=== PATIENT | female | born 1955 | race Caucasian/White ===

== ENCOUNTER → 2016-11-11 | Outpatient (RCR) ==
--- NOTE | 2016-10-30 14:42 | RS.OPPTEV2 ---
Date of Note: 10/30/16 Visit #: 1 Date of Evaluation: 10/30/16 Payer Source: Insurance Date of Onset/Injury/Change in Status: 08/21/16 Surgery Performed?: Yes Date of Procedure: 08/21/16 Treatment Diagnosis: cervicalgia History of Condition/Mechanism of Injury:: Patient reports to physical therapy with neck pain following cervical disc replacement of two discs. She has had the pain for years and finally had to get something done. She states that she still has to take some type of pain meds every day. It can be a Tylenol or it may need to be a narcotic. Prior Level of Function.....Patient was independent with: ADL's, Self Care, Caregiving, Ambulation/Mobility, Community Integration/Access Functional Limitations: Sleep, Pushing, Pulling, Lifting, Carrying, Community Access/Integration Current Subjective/complaints:: I feel good when I first wake up and after I just get up from a nap. After I am up for a short time I start having pain and tightness again. Treatment Side (optional): N/A Medical History Medical History: Diabetes Medical History Comments:: Patient states she has been diabetic since she was in her 30s and that her blood sugar is very unstable and not related to what she eats really. She has to monitor her blood often for control. Surgical History: Cholecystectomy, Other Surgical History Comments:: Cervical disc replacements and CTS Smoking Status: Former smoker Pain Assessment - Pain Description Pain Location: Cervical spine and upper traps Pain Description: Throbbing, Aching Pain Description: Daily but not constant Current Pain Intensity: 3/10 Worst Pain Intensity: 10/10 Functional Outcome Measure Neck Disability Index: 21 (42% disability) - G Codes & Severity Modifier G Codes & Modifier: NA Source of G Code score: NA Observation - Observation Posture: Forward Head, Rounded Shoulders Comments: Bilateral scapular winging Handedness: Right General Range of Motion: BUE ROM WNLs Muscle Strength: MMT BUEs WNLs - ROM Comments: CROM WFLs - Strength Cervical Extension: 4 Good Cervical Flexion: 4 Good Cervical Lateral Flexion: 4- Good- Palpation Palpation Findings: Tenderness (Throughout the cervical and upper trap regions.) Interventions - Exercise/Activities/Manual Therapy Exercises/Activities: NA Manual Therapy: NA - Charges Total Direct Minutes: 45 Total Treatment Time: 45 Procedures billed for this date of service:: PT Eval (Medium) Assessment Assessment: Neck and upper trap pain and weakness. Patient Education: Education of diagnosis, Body/Joint mechanics, Activity Modification, Education of Plan of Care Rehab Potential: Good Short Term Goals Goal #1: Patient will display independence with basic HEP. Goal to be met by: 11/21/16 Goal #2: Patient has 25% improvement in ability to sleep Goal to be met by: 11/21/16 Goal #3: Patient is able to be active X 4 hrs before need for pain meds. Goal to be met by: 11/21/16 Nursing Home Goals Goal #1: Patient will report normal sleep pattern. Goal to be met by: 12/12/16 Goal #2: Patient will tolerance lifting activity without pain. Goal to be met by: 12/12/16 Goal #3: Patient will complete all daily activites with min neck pain. Goal to be met by: 12/12/16 Goal #4: Pt independent with DC HEP Goal to be met by: 12/12/16 Plan - Treatment to be Provided Procedures: Therapeutic Exercises, Therapeutic Activity, Neuromuscular Rehab, Manual Therapy, Massage, Patient Education Modalities: Electrical Stimulation, Ultrasound/Phonophoresis, Class IV Laser, Cryotherapy, Hot Packs - Treatment Plan Frequency: 2 X week Duration: 6 weeks ORDER # VISITS AND/OR THROUGH DATE: 12/12/16 - Treatment Code (1) Cervicalgia Comments: M54.2 (2) Weakness of neck Comments: M53.82
--- NOTE | 2016-11-11 10:18 | RS.OPPTDN ---
Subjective Date of Note: 11/11/16 Visit #: 2 Date of Evaluation: 10/30/16 Payer Source: Insurance Treatment Diagnosis: cervicalgia Current Subjective/complaints:: Patient says she always has trouble with sleeping and that it is not necessarily due to her neck pain. She reports not noticing her pain until the end of the day. She says she has pain even with surgery, but the L is more than the R. Pain Assessment - Pain Description Pain Location: Cervical spine and upper traps Pain Description: Throbbing, Aching Pain Description: Daily but not constant Current Pain Intensity: 12/19 - Treatment Modality: Electrical Stim Unattended Parameters/Method Applied: hivolt 4 small pads @ 125 (R) and 165 pk volts (L) x 20 mins Patient Position: Sitting - Heat/Cryotherapy Treatment: Hot Pack (with estim (cervical)) Interventions - Exercise/Activities/Manual Therapy Exercises/Activities: Patient receives gentle stretching of SB and rotation. She performs cervical retraction, shoulder shrugs, scap adduction (also given for home). Total minutes of Exercise: 5 Manual Therapy: Patient receives MT of DTM and trigger point work for bilateral UT Total minutes of Manual Therapy: 10 HOME EXERCISE PROGRAM: Pain free cervical ROM of chin tucks,rotation ,lateral flexion.Postural pullbacks with theraband at different levels.Recommended 2-3x/ day,12/24 reps. - Charges Total Direct Minutes: 15 Total Treatment Time: 35 Procedures billed for this date of service:: hp, estim (un), MT Assessment: Patient admits consistent pain to her neck, L side more than R. She says despite surgery, she is unable to notice any improvement. 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 She feels relief with be more once she discontinues paperwork. Patient Education: Education of diagnosis, Body/Joint mechanics, Home Exercise Program, Home Safety, Activity Modification, Education of Plan of Care Short Term Goals Goal #1: Patient will display independence with basic HEP. Goal to be met by: 11/21/16 Goal #2: Patient has 25% improvement in ability to sleep Goal to be met by: 11/21/16 Goal #3: Patient is able to be active X 4 hrs before need for pain meds. Goal to be met by: 11/21/16 Radiographic Technologist Goals Goal #1: Patient will report normal sleep pattern. Goal to be met by: 12/12/16 Goal #2: Patient will tolerance lifting activity without pain. Goal to be met by: 12/12/16 Goal #3: Patient will complete all daily activites with min neck pain. Goal to be met by: 12/12/16 Goal #4: Pt independent with DC HEP Goal to be met by: 12/12/16 Plan PLAN OF CARE EXPIRES ON:: 12/12/16 ORDER # VISITS AND/OR THROUGH DATE: 12/12/16 PLAN: Continue Plan of Care
== END ==
DX: M54.2 Cervicalgia (principal)

== ENCOUNTER 2016-12-04 09:00 | Outpatient (RCR) ==
--- NOTE | 2016-11-13 10:19 | RS.OPPTDN ---
Subjective Date of Note: 11/13/16 Visit #: 3 Date of Evaluation: 10/30/16 Payer Source: Insurance Treatment Diagnosis: cervicalgia Current Subjective/complaints:: Patient states she has a pulsating pressure to her neck and head. States she can feel her heartbeat and she is unable to get relief. Reports she is seeing her MD as soon as she gets out of PT. Reports she does not want ice, but rather heat. Pain Assessment - Pain Description Pain Location: Cervical spine and upper traps Pain Description: Daily but not constant Current Pain Intensity: 12/19 - Treatment Modality: Electrical Stim Unattended Parameters/Method Applied: hivolt 4 small pads @ 135-150 pk volts x 20 mins to the bilateral UT Patient Position: Sitting - Heat/Cryotherapy Treatment: Hot Pack (with estim) Interventions - Exercise/Activities/Manual Therapy Exercises/Activities: Patient receives gentle stretching of SB and rotation. She performs cervical retraction, shoulder shrugs, scap adduction (also given for home). Total minutes of Exercise: 5 Manual Therapy: Patient receives MT of DTM and trigger point work for bilateral UT Total minutes of Manual Therapy: 10 HOME EXERCISE PROGRAM: Pain free cervical ROM of chin tucks,rotation ,lateral flexion.Postural pullbacks with theraband at different levels.Recommended 2-3x/ day,12/24 reps. - Charges Total Direct Minutes: 15 Total Treatment Time: 35 Procedures billed for this date of service:: hp, estim (un), ex Assessment: Patient continues to admit mod to severe pain at the bilateral UT with c/o pressure and throbbing to the ear/neck. She denies having a BELL, but c/ o double vision. She does demo increased muscle guarding to the bilateral UT. No symptom change with treatment this week. Patient Education: Education of diagnosis, Body/Joint mechanics, Home Exercise Program, Home Safety, Activity Modification, Education of Plan of Care Short Term Goals Goal #1: Patient will display independence with basic HEP. Goal to be met by: 11/21/16 Goal #2: Patient has 25% improvement in ability to sleep Goal to be met by: 11/21/16 Goal #3: Patient is able to be active X 4 hrs before need for pain meds. Goal to be met by: 11/21/16 Group Home Goals Goal #1: Patient will report normal sleep pattern. Goal to be met by: 12/12/16 Goal #2: Patient will tolerance lifting activity without pain. Goal to be met by: 12/12/16 Goal #3: Patient will complete all daily activites with min neck pain. Goal to be met by: 12/12/16 Goal #4: Pt independent with DC HEP Goal to be met by: 12/12/16 Plan PLAN OF CARE EXPIRES ON:: 12/12/16 ORDER # VISITS AND/OR THROUGH DATE: 12/12/16 PLAN: Continue Plan of Care (Patient is going to follow up with her MD once she leaves PT today.)
--- NOTE | 2016-11-18 10:20 | RS.OPPTDN ---
Subjective Date of Note: 11/18/16 Visit #: 4 Date of Evaluation: 10/30/16 Payer Source: Insurance Treatment Diagnosis: cervicalgia Current Subjective/complaints:: Patient c/o stiffness. Says her L side of her neck hurts more than R. Reports she did go to the MD after her last session and she will be undergoing some testing. States she can tell that flexibility has been better. Pain Assessment - Pain Description Pain Location: Cervical spine and upper traps Pain Description: Daily but not constant Current Pain Intensity: Does not rate, but says it ismostly stiff - Treatment Modality: Electrical Stim Unattended Parameters/Method Applied: 4 small pads controlling L side seperately @ 145-155 pk volts x 20 mins Treatment Area: bilateral UT Patient Position: Sitting - Heat/Cryotherapy Treatment: Hot Pack Interventions - Exercise/Activities/Manual Therapy Exercises/Activities: Patient receives gentle stretching of SB and rotation. She performs cervical retraction, shoulder shrugs, assists with scap adduction. Total minutes of Exercise: 5 Manual Therapy: Patient receives MT of DTM and trigger point work for bilateral UT Total minutes of Manual Therapy: 15 HOME EXERCISE PROGRAM: Pain free cervical ROM of chin tucks,rotation ,lateral flexion.Postural pullbacks with theraband at different levels.Recommended 2-3x/ day,12/24 reps. - Charges Total Direct Minutes: 20 Total Treatment Time: 40 Procedures billed for this date of service:: hp, estim (un), ex Assessment: Patient experiencing mostly stiffness today. She implies and demos improved flexibility and muscle guarding with treatment today. Less "pressure" noted compared to last visit. Patient Education: Education of diagnosis, Body/Joint mechanics, Home Exercise Program, Home Safety, Activity Modification, Education of Plan of Care Patient demonstrates compliance with HEP?: Yes Short Term Goals Goal #1: Patient will display independence with basic HEP. Goal to be met by: 11/21/16 Progress towards Goal:: Progressing Goal #2: Patient has 25% improvement in ability to sleep Goal to be met by: 11/21/16 Goal #3: Patient is able to be active X 4 hrs before need for pain meds. Goal to be met by: 11/21/16 Cash Grain Grower Goals Goal #1: Patient will report normal sleep pattern. Goal to be met by: 12/12/16 Goal #2: Patient will tolerance lifting activity without pain. Goal to be met by: 12/12/16 Goal #3: Patient will complete all daily activites with min neck pain. Goal to be met by: 12/12/16 Goal #4: Pt independent with DC HEP Goal to be met by: 12/12/16 Plan PLAN OF CARE EXPIRES ON:: 12/12/16 ORDER # VISITS AND/OR THROUGH DATE: 12/12/16 PLAN: Continue Plan of Care
--- NOTE | 2016-11-25 15:06 | RS.OPPTDN ---
Subjective Date of Note: 11/25/16 Visit #: 5 Date of Evaluation: 10/30/16 Payer Source: Insurance Treatment Diagnosis: cervicalgia Current Subjective/complaints:: Patient states she may have to accept the amount of pain she is in and understand that it will vary. 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 She says treatment helps, but muscles tighten back up and she is able to feel knots to both sides of her neck. Pain Assessment - Pain Description Pain Location: Cervical spine and upper traps Pain Description: Daily but not constant Current Pain Intensity: Does not rate, but says it ismostly stiff - Treatment Modality: Electrical Stim Unattended Parameters/Method Applied: hivolt 4 small pads @ 170 and 200 pk volts x 20 mins to bilateral UT Patient Position: Sitting - Heat/Cryotherapy Treatment: Hot Pack Interventions - Exercise/Activities/Manual Therapy Exercises/Activities: Patient receives gentle stretching of SB and rotation. She performs cervical retraction, shoulder shrugs, assists with scap adduction. Total minutes of Exercise: 5 Manual Therapy: Patient receives MT of DTM and trigger point work for bilateral UT Total minutes of Manual Therapy: 13 HOME EXERCISE PROGRAM: Pain free cervical ROM of chin tucks,rotation ,lateral flexion.Postural pullbacks with theraband at different levels.Recommended 2-3x/ day,3/15 reps. 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 She maintains several small active and non active trigger points to the bilateral UT, which appear to be smaller and less sensitive than last week. Patient Education: Education of diagnosis, Body/Joint mechanics, Home Exercise Program, Home Safety, Activity Modification, Education of Plan of Care Patient demonstrates compliance with HEP?: Yes Short Term Goals Goal #1: Patient will display independence with basic HEP. Goal to be met by: 11/21/16 Progress towards Goal:: Progressing Goal #2: Patient has 25% improvement in ability to sleep Goal to be met by: 11/21/16 Goal #3: Patient is able to be active X 4 hrs before need for pain meds. Goal to be met by: 11/21/16 Library Customer Service Clerk Goals Goal #1: Patient will report normal sleep pattern. Goal to be met by: 12/12/16 Goal #2: Patient will tolerance lifting activity without pain. Goal to be met by: 12/12/16 Goal #3: Patient will complete all daily activites with min neck pain. Goal to be met by: 12/12/16 Goal #4: Pt independent with DC HEP Goal to be met by: 12/12/16 Plan PLAN OF CARE EXPIRES ON:: 12/12/16 ORDER # VISITS AND/OR THROUGH DATE: 12/12/16 PLAN: Continue Plan of Care
--- NOTE | 2016-11-27 13:22 | RS.OPPTDN ---
Subjective Date of Note: 11/27/16 Visit #: 6 Date of Evaluation: 10/30/16 Payer Source: Insurance Treatment Diagnosis: cervicalgia Current Subjective/complaints:: Patient states she is worse today. She stresses it is not from therapy,but her history of neck pain and activity she needs to do daily. Pain Assessment - Pain Description Pain Location: Cervical spine and upper traps Pain Description: Daily but not constant Current Pain Intensity: Does not rate, but says it ismostly stiff - Treatment Modality: Electrical Stim Unattended Parameters/Method Applied: hivolt 4 small pads L side controlled seperately from R @ 200 pk volts x 20 mins to bilateral UT Patient Position: Sitting - Heat/Cryotherapy Treatment: Hot Pack Interventions - Exercise/Activities/Manual Therapy Exercises/Activities: Patient receives gentle stretching of SB and rotation. She performs cervical retraction, shoulder shrugs, assists with scap adduction. Isometric cervical retraction 2/5. Postural technique instruction with bringing reading material/phone to eye level. Total minutes of Exercise: 5 Manual Therapy: Patient receives MT of DTM and trigger point work for bilateral UT Total minutes of Manual Therapy: 15 HOME EXERCISE PROGRAM: Pain free cervical ROM of chin tucks,rotation ,lateral flexion.Postural pullbacks with theraband at different levels.Recommended 2-3x/ day,3/15 reps. - Charges Total Direct Minutes: 20 Total Treatment Time: 40 Procedures billed for this date of service:: hp, MT, estim (un) Assessment: Patient with increased pain today probably related to activity level at home and with preparing taxes/documentation. Increased muscle guarding particularly to the L UT today. Symptoms are temporarily relieved in the department today. Patient Education: Education of diagnosis, Body/Joint mechanics, Home Exercise Program, Home Safety, Activity Modification, Education of Plan of Care Patient demonstrates compliance with HEP?: Yes Short Term Goals Goal #1: Patient will display independence with basic HEP. Goal to be met by: 11/21/16 Progress towards Goal:: Progressing Goal #2: Patient has 25% improvement in ability to sleep Goal to be met by: 11/21/16 Progress towards Goal:: No Change Goal #3: Patient is able to be active X 4 hrs before need for pain meds. Goal to be met by: 11/21/16 Plaster Maker Goals Goal #1: Patient will report normal sleep pattern. Goal to be met by: 12/12/16 Goal #2: Patient will tolerance lifting activity without pain. Goal to be met by: 12/12/16 Goal #3: Patient will complete all daily activites with min neck pain. Goal to be met by: 12/12/16 Goal #4: Pt independent with DC HEP Goal to be met by: 12/12/16 Plan PLAN OF CARE EXPIRES ON:: 12/12/16 ORDER # VISITS AND/OR THROUGH DATE: 12/12/16 PLAN: Continue Plan of Care (continue one more week, if no change plan to refer back to MD and continue HEP)
--- NOTE | 2016-12-02 10:29 | RS.OPPTDN ---
Subjective Date of Note: 12/02/16 Visit #: 7 Date of Evaluation: 10/30/16 Payer Source: Insurance Treatment Diagnosis: cervicalgia Current Subjective/complaints:: Patient says she feels estim is making her worse. She says that when it was increased last week, she had elevated pain to her back. Advised patient that electrodes were placed at the UT only and it would not affect her back. She later, says that she would like to continue estim, but have it lower. Pain Assessment - Pain Description Pain Location: Cervical spine and upper traps Pain Description: Daily but not constant Current Pain Intensity: Does not rate, but says it is mostly stiff - Treatment Modality: Electrical Stim Unattended Parameters/Method Applied: hivolt 4 small pads @ 70 pk volts x 20 mins Treatment Area: bilateral UT Patient Position: Sitting - Heat/Cryotherapy Treatment: Hot Pack (cervical ) Interventions - Exercise/Activities/Manual Therapy Exercises/Activities: Patient receives gentle stretching of SB and rotation. She performs cervical retraction, shoulder shrugs, assists with scap adduction. Isometric cervical retraction 2/5. Isometric SB to L and R 2/5. Continued postural technique instruction with bringing reading material/phone to eye level. Total minutes of Exercise: 16 Manual Therapy: na HOME EXERCISE PROGRAM: Pain free cervical ROM of chin tucks,rotation ,lateral flexion.Postural pullbacks with theraband at different levels.Recommended 2-3x/ day,3/15 reps. - Charges Total Direct Minutes: 16 Total Treatment Time: 36 Procedures billed for this date of service:: hp, estim (un), ex Assessment: Patient experienced increased pain, particularly expressing back pain since his last session. Advised her that this modality and its placement will not cause back pain. 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 Instructed of proper postural mechanics again as she sits slouched looking at her phone with FHP. All therex guillermo well with only slight soreness with resisted L SB. Patient Education: Education of diagnosis, Body/Joint mechanics, Home Exercise Program, Home Safety, Activity Modification, Education of Plan of Care Patient demonstrates compliance with HEP?: Yes Short Term Goals Goal #1: Patient will display independence with basic HEP. Goal to be met by: 11/21/16 Progress towards Goal:: Progressing Goal #2: Patient has 25% improvement in ability to sleep Goal to be met by: 11/21/16 Progress towards Goal:: No Change Goal #3: Patient is able to be active X 4 hrs before need for pain meds. Goal to be met by: 11/21/16 Sales Audit Clerk Goals Goal #1: Patient will report normal sleep pattern. Goal to be met by: 12/12/16 Goal #2: Patient will tolerance lifting activity without pain. Goal to be met by: 12/12/16 Goal #3: Patient will complete all daily activites with min neck pain. Goal to be met by: 12/12/16 Goal #4: Pt independent with DC HEP Goal to be met by: 12/12/16 Plan PLAN OF CARE EXPIRES ON:: 12/12/16 ORDER # VISITS AND/OR THROUGH DATE: 12/12/16 PLAN: Plan for Discharge (Since patient has not had significant change, she is to continue one more session, then discharge with HEP)
--- NOTE | 2016-12-04 16:45 | RS.OPPTDN ---
Subjective Date of Note: 12/04/16 Visit #: 8 Date of Evaluation: 10/30/16 Payer Source: Insurance Treatment Diagnosis: cervicalgia Current Subjective/complaints:: Patient reports her pain is not worse, but not better either. 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 She does say she is able to notice less tightness to the neck, particularly on the L side. Pain Assessment - Pain Description Pain Location: Cervical spine and upper traps Pain Description: Daily but not constant Current Pain Intensity: Does not rate, but says it is mostly stiff - Treatment Modality: Electrical Stim Unattended Parameters/Method Applied: 4 small pads hivolt @ 125 pk volts x 20 mins Treatment Area: bilateral UT Patient Position: Sitting - Heat/Cryotherapy Treatment: Hot Pack Interventions - Exercise/Activities/Manual Therapy Exercises/Activities: Patient receives gentle stretching of SB and rotation. She performs cervical retraction, shoulder shrugs, assists with scap adduction. Isometric cervical retraction 2/5. Isometric SB to L and R 2/5. Continued postural technique instruction with bringing reading material/phone to eye level. Total minutes of Exercise: 8 Manual Therapy: 13 Total minutes of Manual Therapy: DTM and trigger work to the bilateral UT. HOME EXERCISE PROGRAM: Pain free cervical ROM of chin tucks,rotation ,lateral flexion.Postural pullbacks with theraband at different levels.Recommended 2-3x/ day,3/15 reps. - Charges Total Direct Minutes: 21 Total Treatment Time: 41 Procedures billed for this date of service:: hp, estim (un), MT Assessment: Patient indicates very little progress, but on Neck Index she does show 3 areas of improvement. She shows less trigger points/tenderness to the L UT today as well. Patient Education: Education of diagnosis, Body/Joint mechanics, Home Exercise Program, Home Safety, Activity Modification, Education of Plan of Care Patient demonstrates compliance with HEP?: Yes Short Term Goals Goal #1: Patient will display independence with basic HEP. Goal to be met by: 11/21/16 Progress towards Goal:: Progressing Goal #2: Patient has 25% improvement in ability to sleep Goal to be met by: 11/21/16 Progress towards Goal:: No Change Goal #3: Patient is able to be active X 4 hrs before need for pain meds. Goal to be met by: 11/21/16 Progress towards Goal:: No Change Detention Goals Goal #1: Patient will report normal sleep pattern. Goal to be met by: 12/12/16 Progress towards goal: No Change Goal #2: Patient will tolerance lifting activity without pain. Goal to be met by: 12/12/16 Progress towards goal: Progressing Goal #3: Patient will complete all daily activites with min neck pain. Goal to be met by: 12/12/16 Progress towards goal: No Change Goal #4: Pt independent with DC HEP Goal to be met by: 12/12/16 Progress towards goal: Met Plan PLAN OF CARE EXPIRES ON:: 12/12/16 ORDER # VISITS AND/OR THROUGH DATE: 12/12/16 PLAN: Plan for Discharge
--- NOTE | 2017-01-22 09:21 | RS.QUICKDC ---
Discharge from PT Date of Discharge: 01/22/17 Number of Visits: 8 Reason for Discharge: Patient had consistently attended for moist heat, estim, postural strengthening, passive stretching, and DTM to bilateral UT. Patient had reported no significant change in neck pain. She admitted to decreased tightness and slightly better mobility. 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 For specific information, see daily notes.
== END 2016-12-09 ==
DX: M54.2 Cervicalgia (principal)

== ENCOUNTER 2017-03-23 12:25 | Emergency (ER) ==
[2017-03-23 12:32] VITALS: BP 150/91; TEMP 98; BMI 22.8
[2017-03-23] MEDS ORDERED: LIDOCAINE 1 % AMP 5 ML (SUTURES) SUBCUT STA (13:34)
[2017-03-23] MEDS ORDERED: GI COCKTAIL PO STA (13:35)
--- NOTE | 2017-03-23 13:56 | ED.PDOC ---
General ED Provider: Dr. CARMEN SHANE Chief Complaint: Head Injury Stated Complaint: head injury/laceration Time Seen by Physician: 12:39 (blunt force trauma no LOC) Mode of Arrival: Walk-In Information Source: Patient Exam Limitations: No limitations Primary Care Provider: DEJA VALENCIA Nursing and Triage Documentation Reviewed and Agree: Yes Trauma/Injury Complaint Exam - Head Injury Complaint/Exam Location of Pain: Reports: Scalp Mechanism of Injury: Reports: Trauma (BLUNT FORCE ) Onset/Duration: THIS MORNING NO L.O.C Symptoms Are: Still present Initial Severity: Mild Current Severity: Mild Character: Reports: Dull Aggravating: Reports: None Alleviating: Reports: None Associated Signs and Symptoms: Denies: Confusion, Memory loss, Seizure, Epistaxis, Dental malocclusion, Neck pain, Nausea, Vomiting Loss of Consciousness: None SDH Risk Factors: Present: Recent trauma Cervical Spine Injury Risk Factors: Present: None Related Surgical History: Reports: None Glascow Coma Scale (see protocol): 15 Focal Weakness: Present: None Focal Sensory Loss: Present: None Gait: Normal Gag Reflex Present: Yes Nexus Low Risk Criteria: No Altered LOC, No focal neuro deficit, No distracting injuries Differential Diagnoses: Trauma Review of Systems - Review Of Systems Constitutional: Reports: No symptoms Eyes: Reports: No symptoms Ears, Nose, Mouth, Throat: Reports: No symptoms Respiratory: Reports: No symptoms Cardiac: Reports: No symptoms GI: Reports: No symptoms : Reports: No symptoms Musculoskeletal: Reports: No symptoms Skin: Reports: Other (LACERATION SEE PHOTOS ) Neurological: Reports: No symptoms Endocrine: Reports: No symptoms Hematologic/Lymphatic: Reports: No symptoms All Other Systems: Reviewed and Negative Past Medical History - Past Medical History Previously Healthy: Yes Endocrine: Reports: None Cardiovascular: Reports: None Respiratory: Reports: None Hematological: Reports: None Gastrointestinal: Reports: None Genitourinary: Reports: None Neuro/Psych: Reports: None Musculoskeletal: Reports: None Cancer: Reports: None Last Menstrual Period: na - Surgical History General Surgical History: Reports: None - Family History Family History: Reports: None - Social History Smoking Status: Current some day smoker Hx Substance Use: No Alcohol Screening: Occasionally - Immunizations Tetanus Shot up to Date: No Physical Exam - Physical Exam Appearance: Well-appearing, No pain distress, Well-nourished Eyes: TODD, EOMI, Conjunctiva clear ENT: Ears normal, Nose normal, Oropharynx normal Respiratory: Airway patent, Breath sounds clear, Breath sounds equal, Respirations nonlabored Cardiovascular: RRR, Pulses normal, No rub, No murmur GI/: Soft, Nontender, No masses, Bowel sounds normal, No Organomegaly Musculoskeletal: Normal strength, ROM intact, No edema, No calf tenderness Skin: Warm, Dry (LACERATION SCALP SEE PHOTOS) Neurological: Sensation intact, Motor intact, Reflexes intact, Cranial nerves intact, Alert, Oriented Psychiatric: Affect appropriate, Mood appropriate Critical Care Note - Critical Care Note Total Time (mins): 0 Course - Course Orders, Labs, Meds: Orders Category Date Time Status Lidocaine HCl/Pf [Lidocaine 1 % Amp 5 ml (Sutures)] MEDS 03/23/17 13:34 Discontinued 5 ml SUBCUT ONCE STA Mag-Al Plus//Lidocaine [Gi Cocktail] MEDS 03/23/17 13:35 Discontinued 30 ml PO ONCE STA Medications Discontinued Medications Generic Name Dose Route Start Last Admin Trade Name Freq PRN Reason Stop Dose Admin Al Hydroxide/Mg Hydroxide 30 ml 03/23/17 13:35 Gi Cocktail PO 03/23/17 13:36 ONCE STA Lidocaine HCl 5 ml 03/23/17 13:34 Lidocaine 1 % Amp 5 Ml (Sutures) SUBCUT 03/23/17 13:35 ONCE STA Vital Signs: Temp Pulse Resp BP Pulse Ox 03/23/17 12:26 98 F 81 20 150/91 H 98 Departure - Departure Time of Disposition: 13:57 Disposition: HOME SELF-CARE Discharge Problem: Injury of head Laceration of scalp Qualifiers: Encounter type: initial encounter Qualifier Code: (S01.01XA) Laceration without foreign body of scalp, initial encounter Instructions: Laceration (ED) Condition: Good Pt referred to PMD for follow-up: No Allergies/Adverse Reactions: Allergies Sulfa (Sulfonamide Antibiotics) Adverse Reaction (Verified 03/23/17 12:40) Disposition Discussed With: Patient
--- NOTE | 2017-03-23 16:07 | CT ---
EXAM: CT cervical spine without contrast. HISTORY: Pain after something fell on head COMPARISON: MRI cervical spine 01/04/2016 TECHNIQUE: Serial axial images of the cervical spine were obtained from the skull base through the lung apices without contrast. These were viewed in multiple planes. FINDINGS: Vertebral bodies demonstrate no acute compression fracture. There is scattered facet art hropathy. There is anterior fusion hardware from C5 through C7. There is no hardware fracture or l oosening. Disc spacer material is noted at the levels. There is no lytic or blastic lesion. There is bilateral mild neural foraminal narrowing at C6-C7 and C7-T1. Soft tissues are unremarkable. The thyroid is unremarkable. There is questionable apical emphysema tous disease. IMPRESSION: 1. No acute compression fracture or subluxation of the cervical spine. 2. Fusion hardware from C5-C7 with no evidence of hardware fracture or loosening. 3. Multilevel degenerative disease of the spine. There is bilateral neural foraminal narrowing not ed at C6-C7 and C7-T1.
== END 2017-03-23 16:39 | disposition home or self-care (01) ==
LOC: ED 12:25
DX: S01.01XA Laceration without foreign body of scalp, initial encounter (principal); S09.90XA Unspecified injury of head, initial encounter; W22.8XXA Striking against or struck by other objects, initial encounter; F17.210 Nicotine dependence, cigarettes, uncomplicated
CPT/HCPCS: 99283

== ENCOUNTER 2017-04-22 08:49 | Outpatient (CLI) | END 2017-04-22 08:50 | disposition home or self-care (01) | LOC: RAD 08:49 | PROVIDERS: ATTEND Internal Medicine | DX: Z12.31 Encounter for screening mammogram for malignant neoplasm of breast (principal) ==

== ENCOUNTER 2017-05-13 08:58 | Outpatient (CLI) ==
[2017-05-13 10:01] LABS: CREATININE 0.83 mg/dL (0.60-1.30)
--- NOTE | 2017-05-13 12:02 | MRI ---
EXAM: MRI brain without and with IV contrast. DATE: 13 May 2017. HISTORY: Visual disturbance, diplopia. Abnormal brain MRI. Concern for multiple sclerosis. Bilat eral upper extremity numbness. Headaches. TECHNIQUE: Sagittal T1W pre and postcontrast, sagittal FLAIR, axial T2W, axial FLAIR pre and post c ontrast, axial T1W pre and postcontrast, axial DWI, coronal T1W postcontrast, and coronal T2W GRE se quences of the brain were obtained using 1.2 Hilda magnet. CONTRAST: Omniscan - 11 ml IV. COMPARISON: MRI C-spine 04 January 2016. FINDINGS: The ventricles, cisterns, and subarachnoid spaces are normal in size and configuration. No midline shift, mass effect or abnormal extra-axial fluid collection is apparent. No acute infarc t, hemorrhage or enhancing neoplasm is identified. No abnormal contrast enhancement is identified i n the brain, meninges or dura. Minimal T2W/FLAIR hyperintensity is observed in the white matter abu tting each lateral ventricle. An 8.7 x 4 x 5.7 mm T2W/FLAIR bright, non-enhancing focus is demonstr ated in the left frontal centrum semiovale. Small number 2-3 mm, T2W/FLAIR bright, non-enhancing fo ci are scattered within the subcortical white matter both cerebral hemispheres. The varma - white ma tter differentiation is normal. No migration or diverticulation abnormality is identified. The cee gdala, hippocampus, and parahippocampal gyri are symmetric and normal bilaterally. The 7th/8th cran ial nerve complexes, cerebellopontine angles, brainstem, and visible cervical spinal cord are normal . There is no cerebellar tonsillar ectopia. The pituitary gland is borderline to slightly small in size. No pituitary lesion is demonstrated. Corpus callosum is normal in size and configuration. Flow voids are present in the major intracranial arteries and in the dural venous sinuses. No aneur ysm, AVM or dural venous sinus thrombosis is apparent. No orbit abnormality is identified. The mas toid air cells are unremarkable. There is minor mucosal thickening within multiple ethmoid air cell s and left maxillary sinus. No neck mass or lymphadenopathy is detected. No calvarial neoplasm or acute fracture is evident. IMPRESSIONS: 1. No acute infarct, hemorrhage, mass or hydrocephalus. 2. Minor supratentorial white matter changes - likely small vessel disease. Demyelinating disease, sequelae infection, or vasculitis might also be considered. 3. Borderline vs small pituitary gland. 4. Minor ethmoid / maxillary sinus disease.
== END 2017-05-13 08:59 | disposition home or self-care (01) ==
LOC: RAD 08:58
PROVIDERS: ATTEND Psychiatry & Neurology Neurology
DX: R90.89 Other abnormal findings on diagnostic imaging of central nervous system (principal); H53.9 Unspecified visual disturbance; H53.2 Diplopia; M54.2 Cervicalgia
CPT/HCPCS: 36415; 82565

== ENCOUNTER 2017-05-14 13:38 | Outpatient (CLI) ==
--- NOTE | 2017-05-15 08:20 | MRI ---
EXAM: MRI thoracic spine without and with IV contrast. DATE: 14 May 2017. HISTORY: Abnormal brain MRI. Multiple sclerosis. Bilateral upper extremity numbness. Upper back pain. TECHNIQUE: Sagittal and axial T1W, T2W, and T1W postcontrast sequences of the thoracic spine along with sagittal IR, coronal T2W, and sagittal PD sequences of the thoracic spine were obtained using 1 .2 Hilda magnet. CONTRAST: Omniscan - 11 ml IV. COMPARISON: MRI C-spine 04 January 2016. FINDINGS: Sagittal counting expedition supervisor sequence of the cervical upper thoracic spine reveals normal alig nment of the cervical spine. Surgical changes from discectomies, interbody fusion plug placement an d anterior plate and screw fixation are noted at C5-C6-C7. No cervical cord compression or high-grad e central canal stenosis is evident. Visible portion the brain and brainstem reveal no infarct, hem orrhage, or neoplasm. No neck mass or cervical lymphadenopathy is demonstrated. There are 12 thoracic vertebra with paired ribs. No thoracic scoliosis is evident. No acute T-spin e fracture, subluxation, osseous malignancy, or jumped facet is evident. Thoracic vertebrae normal in height. Bone marrow signal is normal. Thoracic intervertebral discs are normal in height. Mild disc space narrowing and prominent anterior osteophytes noted at L1-2. Conus medullaris terminates at L1-2. No cord edema, syrinx, myelomalacia, or neoplasm is evident. No abnormal contrast enhance ment is identified in the spinal cord, nerve roots, vertebral bodies or intervertebral discs. No thyroid, tracheal, or esophageal abnormality is demonstrated. Thoracic aorta is unremarkable. N o lung mass, pneumonia, or pleural effusion is identified. Visible portions of the shoulders are no rmal. Visible portions of the liver, spleen, adrenal glands, and kidneys reveal no malignancy. Segmental analysis: C7-T1: Mild bilateral foraminal stenoses due to mild/moderate facet arthropathy. T1-2: Normal, except for bilateral foraminal narrowing due to mild facet arthropathy. T2-3: Normal, except for minor bilateral foraminal narrowing due to mild facet arthropathy. T3-4: Normal, except for mild right facet arthropathy T4-5: Normal. T5-6: Normal. T6-7: Normal. T7-8: Normal. T8-9: Normal. T9-10: Normal, except for mild bilateral facet arthropathy T10-11: Normal. T11-12: Normal T12-L1: Normal. IMPRESSIONS: 1. Thoracic spine mild facet arthropathy and multilevel minor/mild foraminal narrowing. 2. No thoracic spinal cord compression or central canal stenosis. 3. No spinal cord neoplasm, syrinx, MS plaque, or edema detected. 4. S/P ACDF at C5-C6-C7.
== END 2017-05-14 13:39 | disposition home or self-care (01) ==
LOC: RAD 13:38
PROVIDERS: ATTEND Psychiatry & Neurology Neurology
DX: G35 Multiple sclerosis (principal)

== ENCOUNTER 2017-05-18 09:06 | Outpatient (CLI) ==
--- NOTE | 2017-05-18 11:12 | MRI ---
EXAM: Cervical spine MRI without and with contrast. HISTORY: Neck pain and visual disturbance. Abnormal brain MRI. COMPARISON: Brain MRI 05/13/2017, cervical spine CT scan 03/23/2079 cervical spine MRI 01/04/2016. TECHNIQUE: Multiplanar, multisequence MR images were acquired of the cervical spine before and afte r administration of intravenous contrast. FINDINGS: The pituitary gland is low normal in size with homogeneous contrast enhancement. The aircraft assembler niocervical junction is unremarkable and the cervical cord has normal signal intensity. There is no abnormal leptomeningeal contrast enhancement. There is mild mucosal thickening in a few inferior le ft mastoid air cells. Compared to the 01/04/2016 cervical spine MRI, the patient has undergone ACDF' s at C5-6 and C6-7. Metallic artifact is present consistent with anterior screw and plate fixation at these levels. Alignment of the cervical spine is near anatomic. There is anterior disc space melissa rowing at C2-3 and C3-4 and degenerative endplate changes along the posterior endplates at C2-3 and C3-4 with reactive dark STIR signal sclerosis along the posterior superior endplates of C3 and C4 re spectively. Minor ventral spondylosis is present at C4-5. At C7-T1, there is mild disc space narro wing and endplate irregularity. Canal diameter is developmentally narrow. There are no paravertebra l masses. Visualized lung apices are clear. C2-3: The intervertebral disc is normal. There is minor left and mild to moderate right hypertroph ic facet arthropathy with a tiny right facet effusion. There is no central canal stenosis or forami nal stenosis. C3-4: There is a small posterior disc bulge and mild bilateral hypertrophic facet arthropathy, grea ter on the right and minor bilateral uncovertebral hypertrophy. There is mild bilateral foraminal s tenosis. C4-5: There is a posterior disc bulge and moderate right hypertrophic facet arthropathy without for aminal stenosis or central canal stenosis. C5-6: There are postoperative ACDF and bilateral uncinectomy changes. Ligamentum flavum hypertroph y and moderate left hypertrophic facet arthropathy is present with resolution of the previously seen mild spinal stenosis and foraminal stenosis. C6-7: There are postoperative ACDF changes. Ligamentum flavum hypertrophy and bilateral uncoverteb ral hypertrophy is present. There is moderate left foraminal stenosis and resolution of the previou sly seen mild central canal stenosis. C7-T1: There is bilateral hypertrophic facet arthropathy, greater on the left and minor right and m ild to moderate left neural foraminal stenosis. There is no central canal stenosis. IMPRESSION: 1. Status post C5-6 and C6-7 ACDF's without spinal stenosis. 2. Mild cervical degenerative spondylosis. 3. Moderate left C6-7 and mild to moderate left C7-T1 neural foraminal stenosis. 4. No cervical cord lesions.
== END 2017-05-18 09:07 | disposition home or self-care (01) ==
LOC: RAD 09:06
PROVIDERS: ATTEND Psychiatry & Neurology Neurology
DX: R90.89 Other abnormal findings on diagnostic imaging of central nervous system (principal); H53.9 Unspecified visual disturbance; H53.2 Diplopia; M54.2 Cervicalgia

== ENCOUNTER 2018-05-11 09:25 | Outpatient (CLI) ==
--- NOTE | 2018-05-12 09:13 | MAMMO ---
EXAM: Digital screening mammogram with tomosynthesis HISTORY: Screening COMPARISON: 04/22/2017 FINDINGS: Digital MLO and CC views of the right and left breast were performed. Tomosynthesis was p erformed. Computer aided detection utilized. There are bilateral breast implants. There are scatter ed fibroglandular densities. Benign bilateral calcifications. There is no evidence for mass, asymme try, distortion, or suspicious calcifications in either breast. IMPRESSION: 1. No evidence of malignancy in the right or left breast. 2. Annual screening mammogram is recommended in one year. BIRADS category 2, benign
== END 2018-05-11 09:26 | disposition home or self-care (01) ==
LOC: RAD 09:25
PROVIDERS: ATTEND Internal Medicine
DX: Z12.31 Encounter for screening mammogram for malignant neoplasm of breast (principal)
CPT/HCPCS: 77067

== ENCOUNTER 2018-06-26 09:30 | Emergency (ER) ==
[2018-06-26 09:34] VITALS: TEMP 96.9; BMI 21.9
[2018-06-26 09:39] VITALS: BP 198/92
[2018-06-26] MEDS ORDERED: PROTONIX IV IVP STA (09:49)
[2018-06-26] MEDS ORDERED: MORPHINE 4 MG/ML VIAL IVP STA (09:49)
[2018-06-26] MEDS ORDERED: PHENERGAN 25 MG/ML VIAL 25 MG in SODIUM CHLORIDE 50 ML IV STA (09:49)
[2018-06-26] MEDS ORDERED: SODIUM CHLORIDE 1,000 ML IV STA (09:49)
--- NOTE | 2018-06-26 09:57 | ED.PDOC ---
General ED Provider: Dr. BETTINA SIEGEL Chief Complaint: Nausea/Vomiting Stated Complaint: Stared feeling Nauseated at midnight started vomiting at 3 Am. States she feel Sore from vomiting. History of cholecystectomy. Denies any ETOH. Time Seen by Physician: 09:55 Mode of Arrival: Wheelchair Information Source: Patient Exam Limitations: No limitations Primary Care Provider: DEJA VALENCIA Nursing and Triage Documentation Reviewed and Agree: Yes Does patient meet sepsis criteria?: No System Inflammatory Response Syndrome: Not Applicable Sepsis Protocol: For patient's 13 years and over: Temp is 96.8 and below OR 101 and greater Pulse >90 BPM Resp >20/minute Acutely Altered Mental Status Are patient's symptoms suggestive of a new infection, such as: -Pneumonia -Skin, Soft Tissue -Endocarditis -UTI -Bone, Joint Infection -Implantable Device -Acute Abdominal Infection -Wound Infection -Meningitis -Blood Stream Catheter Infection -Unknown GI Complaint Exam - Abdominal Pain Complaint/Exam Onset: Gradual Duration: 10 hours Symptoms Are: Still present Timing: Constant Initial Severity: Moderate Current Severity: Severe Location of Pain: Diffuse Character: Reports: Dull, Aching Aggravating: Reports: None Alleviating: Reports: None Associated Signs and Symptoms: Reports: Back pain, Nausea, Vomiting AAA Risk Factors: Reports: None Cardiac Risk Factors: Reports: None Ectopic Risk Factors: Reports: None Ovarian Torsion Risk Factors: Reports: None Surgical Obstruction Risk Factors: Reports: None Related Surgical History: Reports: Cholecystectomy. Denies: Appendectomy Patient Rh Status: Unknown Abdominal Findings: Present: CVA Tenderness, Other (Left Flank tendernes. Abdomen soft tender to palpation but no rebound ) Differential Diagnoses: Appendicitis, Bowel Obstruction, Diverticulitis, Gastroenteritis, Irritable Bowel Syndrome, Ureteral Stone, Ischemic Bowel, UTI Quality Indicator For Non-Traumatic Chest Pain/Syncope: EKG Performed Review of Systems - Review Of Systems Constitutional: Reports: No symptoms Eyes: Reports: No symptoms Ears, Nose, Mouth, Throat: Reports: No symptoms Respiratory: Reports: No symptoms Cardiac: Reports: No symptoms GI: Reports: Abdominal pain, Nausea, Poor appetite, Vomiting : Reports: No symptoms Musculoskeletal: Reports: No symptoms Skin: Reports: No symptoms Neurological: Reports: Anxiety Endocrine: Reports: No symptoms Hematologic/Lymphatic: Reports: No symptoms All Other Systems: Reviewed and Negative Past Medical History - Past Medical History Previously Healthy: Yes Endocrine: Reports: None Cardiovascular: Reports: None Respiratory: Reports: None Hematological: Reports: None Gastrointestinal: Reports: None Genitourinary: Reports: None Neuro/Psych: Reports: None Musculoskeletal: Reports: None Cancer: Reports: None Last Menstrual Period: n/a - Surgical History General Surgical History: Reports: None - Family History Family History: Reports: None - Social History Smoking Status: Current some day smoker Hx Substance Use: No Alcohol Screening: Occasionally Physical Exam - Physical Exam Appearance: Ill-appearing Ill-appearing: Moderate Pain Distress: Severe Neck: Supple Respiratory: Airway patent, Breath sounds clear, Breath sounds equal, Respirations nonlabored Cardiovascular: RRR, Pulses normal, No rub, No murmur GI/: Soft, No Organomegaly, Tender, Bowel sounds hypoactive Musculoskeletal: Normal strength, ROM intact, No edema, No calf tenderness Skin: Warm, Dry, Normal color Neurological: Cranial nerves intact, Alert, Oriented Psychiatric: Anxious Interpretation - Radiology Interpretation Radiology Interpretation By: Radiologist Radiology Results: Positive Exam Interpreted: CT Scan (pancreatitis ) - EKG Interpretation Time of EKG #1: 10:52 Rate: [place] Rhythm: Sinus [place]: NL Interpretation: non specific T wave changes. Re-Evaluation - Re-Evaluation Time of Re-Evaluation: 11:20 Status: Improved (only slightly ) - Re-Evaluation Time of Re-Evaluation: 12:53 Status: Worse Physician Notification - Case Discussed Physician Notified: Dr Valencia Time of Notification: 11:10 (Transfer out ) Physician Notified: Dr. Martinez Time of Notification: 11:40 (Aggred to Admit to Bed 146 -1 ) Critical Care Note - Critical Care Note Total Time (mins): 40 Comments: Discussed with Dr Valencia who states that that patient has had multiple GI issues in the past and should been transferred out Course - Course Hematology/Chemistry: 06/26/18 10:03 06/26/18 10:03 Orders, Labs, Meds: Lab Review 06/26/18 06/26/18 06/26/18 10:03 10:03 10:03 WBC 19.73 H RBC 4.58 Hgb 13.4 Hct 37.8 MCV 82.5 MCH 29.3 MCHC 35.4 RDW Coeff of Joann 12.4 Plt Count 348 Immature Gran % (Auto) 1.0 Neut % (Auto) 77.2 Lymph % (Auto) 15.3 [place] % (Auto) 6.1 Eos % (Auto) 0.2 Baso % (Auto) 0.2 Immature Gran # (Auto) 0.2 Neut # (Auto) 15.3 H Lymph # (Auto) 3.0 [place] # (Auto) 1.2 Eos # (Auto) 0.0 Baso # (Auto) 0.0 Sodium 135.1 L Potassium 3.80 Chloride 102.6 Carbon Dioxide 23.9 Anion Gap 12.40 BUN 34.3 H Creatinine 0.94 Estimated GFR (MDRD) 61.00 BUN/Creatinine Ratio 36.48 Glucose 491.0 H Calcium 9.50 Total Bilirubin 0.37 AST 18.7 ALT 16.5 Alkaline Phosphatase 162.0 H Total Protein 7.18 Albumin 3.87 Globulin 3.31 Albumin/Globulin Ratio 1.16 Triglycerides 293.8 H Cholesterol 195.7 LDL Cholesterol, Calc 103 VLDL Cholesterol 59 H HDL Cholesterol 34.2 L Cholesterol/HDL Ratio 5.7 H Amylase 1731.4 H* Lipase > 55640.0 H Orders Category Date Time Status EKG-(ED ONLY) Stat CARDIO 06/26/18 10:02 Completed ACTIVITY .Early Mobilization for VTE Prevention CARE 06/26/18 10:41 Active BLOOD GLUCOSE MONITORING ACCUCHECK Q6H CARE 06/26/18 10:43 Active INTAKE & OUTPUT Q8HR CARE 06/26/18 10:40 Active NPO REMINDER: LAB TEST ONCE CARE 06/26/18 10:40 Active VITAL SIGNS Q4HR CARE 06/26/18 10:40 Active NOTHING BY MOUTH DIETARY 06/26/18 Lunch Ordered ED IV/MEDIPORT/POWERPORT .ONCE EMERGENCY 06/26/18 09:49 Active AMYLASE Stat LAB 06/26/18 10:03 Completed CBC W/ AUTO DIFF DAILY@0600 LAB 06/27/18 06:00 Ordered CBC W/ AUTO DIFF DAILY@0600 LAB 06/28/18 06:00 Ordered CBC W/ AUTO DIFF Stat LAB 06/26/18 10:03 Completed COMPREHENSIVE METABOLIC PANEL DAILY@0600 LAB 06/27/18 06:00 Ordered COMPREHENSIVE METABOLIC PANEL DAILY@0600 LAB 06/28/18 06:00 Ordered COMPREHENSIVE METABOLIC PANEL Stat LAB 06/26/18 10:03 Completed LIPASE Stat LAB 06/26/18 10:03 Completed LIPID PANEL Stat LAB 06/26/18 10:03 Completed URINALYSIS C & S IF INDICATED Stat LAB 06/26/18 09:50 Uncollected 0.9 % Sodium Chloride [Saline Flush] MEDS 06/26/18 09:49 Active 1 syr IVF PRN PRN Enoxaparin Sodium [Lovenox] MEDS 06/27/18 09:00 Active 40 mg SUBCUT DAILY Hydromorphone HCl [Dilaudid 0.5 mg/0.5 ml Syringe] MEDS 06/26/18 11:14 Discontinued 1 mg IVP ONCE STA Insulin Glargine,Hum.rec.anlog [Lantus] MEDS 06/27/18 09:00 Active 50 unit SUBCUT DAILY Insulin Regular, Human [Humulin R] MEDS 06/26/18 10:50 Active 0 - 15 unit SUBCUT PRN PRN Insulin Regular, Human [Humulin R] MEDS 06/26/18 10:47 Discontinued 12 unit SUBCUT ONCE STA Ketorolac Tromethamine [Toradol] MEDS 06/26/18 12:52 Stat 30 mg IVP ONCE STA Morphine Sulfate [Morphine 4 mg/ml Syringe] MEDS 06/26/18 10:10 Discontinued 4 mg .ROUTE .STK-MED ONE Morphine Sulfate [Morphine 4 mg/ml Vial] MEDS 06/26/18 09:49 Discontinued 4 mg IVP ONCE STA Morphine Sulfate [Morphine 4 mg/ml Vial] MEDS 06/26/18 10:40 Active 4 mg IVP Q6H PRN Ondansetron HCl/Pf [Zofran 4 mg/2 ml] MEDS 06/26/18 10:40 Active 4 mg IVP Q6H PRN Oxycodone-Acetaminophen 5-325 [Percocet 5-325] MEDS 06/26/18 10:40 Active 1 tab PO Q6H PRN Pantoprazole Sodium [Protonix IV] MEDS 06/26/18 09:49 Discontinued 40 mg IVP ONCE STA Promethazine HCl [Phenergan 25 mg/ml Vial] MEDS 06/26/18 10:09 Discontinued 25 mg .ROUTE .STK-MED ONE Promethazine HCl [Phenergan 25 mg/ml Vial] 25 mg MEDS 06/26/18 09:49 Discontinued 0.9 % Sodium Chloride [Sodium Chloride] 50 ml IV ONCE Sodium Chloride 0.9% [Sodium Chloride] 1,000 ml MEDS 06/26/18 11:00 Active IV 150 mls/hr Sodium Chloride 0.9% [Sodium Chloride] 1,000 ml MEDS 06/26/18 09:49 Discontinued IV BOLUS RESUSCITATION STATUS Routine OTHERS 06/26/18 10:[address] ABD/PEL WO RENAL STONE PROT Stat RADS 06/26/18 09:49 Completed Medications Generic Name Dose Route Start Last Admin Trade Name Tavares PRN Reason Stop Dose Admin Enoxaparin Sodium 40 mg 06/27/18 09:00 Lovenox SUBCUT DAILY KSENIA Sodium Chloride 1,000 mls @ 150 mls/hr 06/26/18 11:00 Sodium Chloride IV .Q6H40M KSENIA Insulin Glargine 50 unit 06/27/18 09:00 Lantus SUBCUT DAILY KSENIA Insulin Human Regular 0 - 15 unit 06/26/18 10:50 Humulin R SUBCUT PRN PRN Hyperglycemica Protocol Morphine Sulfate 4 mg 06/26/18 10:40 Morphine 4 Mg/Ml Vial IVP Q6H PRN severe pain Ondansetron HCl 4 mg 06/26/18 10:40 Zofran 4 Mg/2 Ml IVP Q6H PRN Nausea / Vomiting Oxycodone/Acetaminophen 1 tab 06/26/18 10:40 Percocet 5-325 PO Q6H PRN moderate pain Sodium Chloride 1 syr 06/26/18 09:49 06/26/18 10:26 Saline Flush IVF 1 syr PRN PRN Administration To flush IV Discontinued Medications Generic Name Dose Route Start Last Admin Trade Name Tavares PRN Reason Stop Dose Admin Hydromorphone HCl 1 mg 06/26/18 11:14 06/26/18 11:20 Dilaudid 0.5 Mg/0.5 Ml Syringe IVP 06/26/18 11:15 1 mg ONCE STA Administration Promethazine HCl 25 mg/ Sodium 51 mls @ 75 mls/hr 06/26/18 09:49 06/26/18 10: 22 Chloride IV 06/26/18 10:29 75 mls/hr ONCE STA Administration Sodium Chloride 1,000 mls @ 1,000 mls/hr 06/26/18 09:49 06/26/18 10:26 Sodium Chloride IV 06/26/18 10:48 1,000 mls/hr BOLUS STA Administration Insulin Human Regular 12 unit 06/26/18 10:47 06/26/18 10:54 Humulin R SUBCUT 06/26/18 10:48 12 unit ONCE STA Administration Ketorolac Tromethamine 30 mg 06/26/18 12:52 Toradol IVP 06/26/18 12:53 ONCE STA Morphine Sulfate 4 mg 06/26/18 09:49 06/26/18 10:15 Morphine 4 Mg/Ml Vial IVP 06/26/18 09:50 Not Given ONCE STA Pantoprazole Sodium 40 mg 06/26/18 09:49 06/26/18 10:22 Protonix Iv IVP 06/26/18 09:50 40 mg ONCE STA Administration Vital Signs: Temp Pulse Resp BP Pulse Ox 06/26/18 09:31 96.9 F L 56 L 20 198/92 H 98 Departure - Departure Time of Disposition: 12:53 Disposition: TSF SHORT-TRM HOSP Discharge Problem: Acute pancreatitis Qualifiers: Pancreatitis type: idiopathic Acute pancreatitis complication: unspecified Qualified Code(s): K85.00 - Idiopathic acute pancreatitis without necrosis or infection Condition: Stable Pt referred to PMD for follow-up: Yes IPMP verified?: No Allergies/Adverse Reactions: Allergies Sulfa (Sulfonamide Antibiotics) Adverse Reaction (Verified 06/26/18 09:34) Home Medications: Ambulatory Orders Insulin Glargine,Hum.rec.anlog [Lantus] 50 unit SUBCUT DAILY 06/26/18 Pt. Stabilized Within Hospital's Capabilities/Transferred To: [facility] Disposition Discussed With: Patient, Family
[2018-06-26] MEDS ORDERED: PHENERGAN 25 MG/ML VIAL ONE (10:09)
[2018-06-26] MEDS ORDERED: MORPHINE 4 MG/ML SYRINGE ONE (10:10)
[2018-06-26] MEDS ORDERED: MORPHINE 4 MG/ML VIAL IVP PRN (10:40)
[2018-06-26] MEDS ORDERED: ZOFRAN 4 MG/2 ML IVP PRN (10:40)
[2018-06-26] MEDS ORDERED: PERCOCET 5-325 PO PRN (10:40)
[2018-06-26] MEDS ORDERED: HUMULIN R SUBCUT STA (10:47)
--- NOTE | 2018-06-26 10:49 | CT ---
EXAM: CT abdomen pelvis without contrast HISTORY: Abdominal pain COMPARISON: None. TECHNIQUE: Serial axial images of the abdomen pelvis were performed from the lung bases through the inferior pelvis without contrast. Axial scans acquired at 3 mm slice thicknesses. MPR coronal and s agittal sequence completed FINDINGS: Abdomen. Images of the lower thorax show no some atelectasis , less likely mild interstitial pneumonia right l ower lobe. There are bilateral breast prostheses seen. There is no intrperitoneal free air. The brianda er spleen are normal in size. There are calcified granuloma in the spleen. Adrenal glands unremarka ble. There is no renal calcification. No obstruction of either kidney or ureter. There are changes of prior cholecystectomy. There is minimal peripancreatic edema suggested minimal fluid in the left a nterior pararenal space. Evaluation limited without contrast. Aorta is normal in caliber. There is moderate aortic iliac atherosclerotic calcification. No abdominal adenopathy. There is no small carmelita wel obstruction. Appendix nondilated. The there is no inflammation of the large bowel. Pelvis. There is no free fluid. No adenopathy. No obvious adnexal mass. Skeletal structures. No osteolytic or blastic lesion. Multilevel degenerate disc disease lumbar spi ne with some mild facet arthropathy. Impression 1. Previous cholecystectomy. There is some peripancreatic edema suggested with some fluid in the le ft anterior pararenal space. Correlation with clinical laboratory assess regarding acute pancreatiti s. Small calcification is suggested body the pancreas. Consider follow-up ultrasound or contrast enh anced CT. 2. No bowel obstruction or inflammation. Appendix nondilated. 3. Multilevel degenerate disc disease lumbar spine. 4. Right lower lobe atelectasis less likely mild interstitial pneumonia
[2018-06-26] MEDS ORDERED: HUMULIN R SUBCUT PRN (10:50)
[2018-06-26] MEDS ORDERED: SODIUM CHLORIDE 1,000 ML IV SCH (11:00)
[2018-06-26] MEDS ORDERED: DILAUDID 0.5 MG/0.5 ML SYRINGE IVP STA (11:14)
[2018-06-26] MEDS ORDERED: TORADOL IVP STA (12:52)
[2018-06-27] MEDS ORDERED: LANTUS SUBCUT SCH (09:00)
[2018-06-27] MEDS ORDERED: LOVENOX SUBCUT SCH (09:00)
== END 2018-06-26 12:50 | disposition short-term general hospital (02) ==
LOC: ED 09:30
DX: K85.00 Idiopathic acute pancreatitis without necrosis or infection (principal); F17.210 Nicotine dependence, cigarettes, uncomplicated; R11.2 Nausea with vomiting, unspecified; R10.9 Unspecified abdominal pain
CPT/HCPCS: 36415; 74176; 80053; 80061; 82150; 83690; 85025; 93005; 93010; 96361; 96365; 96372; 96375; 99285

== ENCOUNTER 2018-07-06 12:56 | Emergency (ER) ==
[2018-07-06 13:05] VITALS: BP 146/76; TEMP 99.6; BMI 24.3
--- NOTE | 2018-07-06 14:27 | ED.PDOC ---
General ED Provider: Dr. ARELIS ROLON Chief Complaint: Non-specific Complaint Stated Complaint: Abnormal lab;. Was hospitalized 2 weeks ago a [facility] for Pancreatitis Pt states her glucose was elevated in excess of 600 and was sent to hospital by Dr Valencia. Instructed to come to hospital by Dr. Valencia. States that BS is 600 and took 50 units of Lantus at 1100. When questioned she admitted to experiencing periodic mid substeral chest tightness and has noticed being more fatigued than usual. Admits to exertional dyspnea and fatigue. 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 Time Seen by Physician: 14:10 Mode of Arrival: Walk-In Information Source: Patient, Family Exam Limitations: No limitations Primary Care Provider: DEJA VALENCIA Referred to ED by: PCP Seen Within Last 72 Hours for Same Complaint By: PCP Nursing and Triage Documentation Reviewed and Agree: Yes Does patient meet sepsis criteria?: No System Inflammatory Response Syndrome: Not Applicable Sepsis Protocol: For patient's 13 years and over: Temp is 96.8 and below OR 101 and greater Pulse >90 BPM Resp >20/minute Acutely Altered Mental Status Are patient's symptoms suggestive of a new infection, such as: -Pneumonia -Skin, Soft Tissue -Endocarditis -UTI -Bone, Joint Infection -Implantable Device -Acute Abdominal Infection -Wound Infection -Meningitis -Blood Stream Catheter Infection -Unknown GI Complaint Exam - Abdominal Pain Complaint/Exam Onset: Gradual Review of Systems - Review Of Systems Constitutional: Reports: Diaphoresis Eyes: Reports: No symptoms Ears, Nose, Mouth, Throat: Reports: No symptoms Respiratory: Reports: Short of air Cardiac: Reports: Chest pain (chest tightness) GI: Reports: No symptoms : Reports: No symptoms Musculoskeletal: Reports: No symptoms Skin: Reports: No symptoms Neurological: Reports: No symptoms Endocrine: Reports: No symptoms Hematologic/Lymphatic: Reports: No symptoms All Other Systems: Reviewed and Negative Past Medical History - Past Medical History Previously Healthy: Yes Endocrine: Reports: DM 1, Dyslipidemia Cardiovascular: Reports: None, Hypertension, Angina Respiratory: Reports: None Hematological: Reports: None Gastrointestinal: Reports: None, Liver, Pancreatitis Genitourinary: Reports: None Neuro/Psych: Reports: None Musculoskeletal: Reports: None Cancer: Reports: None Last Menstrual Period: 86 - Surgical History General Surgical History: Reports: Cholecystectomy - Family History Family History: Reports: None - Social History Smoking Status: Former smoker Hx Substance Use: No Alcohol Screening: Occasionally Physical Exam - Physical Exam Appearance: Well-appearing, No pain distress, Well-nourished Ill-appearing: Mild Pain Distress: Mild Eyes: TODD, EOMI, Conjunctiva clear ENT: Ears normal, Nose normal, Oropharynx normal Respiratory: Airway patent, Breath sounds clear, Breath sounds equal, Respirations nonlabored Cardiovascular: RRR, Pulses normal, No rub, No murmur GI/: Soft, No masses, Bowel sounds normal, No Organomegaly, Tender (mid epigastrium) Musculoskeletal: Normal strength, ROM intact, No edema, No calf tenderness Skin: Warm, Dry, Normal color Neurological: Sensation intact, Motor intact, Reflexes intact, Cranial nerves intact, Alert, Oriented Psychiatric: Affect appropriate, Mood appropriate Interpretation - Radiology Interpretation Radiology Interpretation By: Radiologist Radiology Results: Positive Exam Interpreted: Portable CXR Xray Comments: Interstitial Edema /pleual effusions - EKG Interpretation Time of EKG #1: 14:30 Rate: Normal Rhythm: Sinus Ectopy: None ST Segment: Other (ST elevation V1V2./Depression I II V4, 5, 6) Re-Evaluation - Re-Evaluation Time of Re-Evaluation: 15:45 Status: Unchanged Vital Signs Stable: Yes Appearance: NAD Lungs: Clear Skin: Warm and Dry Neuro: Alert and Oriented X3 CV: RRR Additional Comments: Being transferred to [facility] Physician Notification - Case Discussed Physician Notified: Will Time of Notification: 14:30 (Transfer to [facility]) Physician Notified: Dr Sands Time of Notification: 14:50 (accepts in [facility]) Critical Care Note - Critical Care Note Total Time (mins): 60 Course - Course Hematology/Chemistry: 07/06/18 14:50 07/06/18 14:50 Orders, Labs, Meds: Lab Review 07/06/18 07/06/18 07/06/18 14:50 14:50 14:50 WBC 11.84 H RBC 3.55 L Hgb 10.4 L Hct 30.4 L MCV 85.6 MCH 29.3 MCHC 34.2 RDW Coeff of Joann 12.7 Plt Count 281 Immature Gran % (Auto) 0.6 Neut % (Auto) 73.3 Lymph % (Auto) 19.3 [place] % (Auto) 5.3 Eos % (Auto) 1.3 Baso % (Auto) 0.2 Immature Gran # (Auto) 0.1 Neut # (Auto) 8.7 H Lymph # (Auto) 2.3 [place] # (Auto) 0.6 Eos # (Auto) 0.2 Baso # (Auto) 0.0 ESR 55 H Sodium 131.2 L Potassium 3.77 Chloride 90.8 L Carbon Dioxide 31.6 H Anion Gap 12.57 BUN 29.8 H Creatinine 1.07 Estimated GFR (MDRD) 52.00 BUN/Creatinine Ratio 27.85 Glucose 486.2 H Calcium 8.73 Magnesium 1.63 Total Bilirubin 0.23 AST 38.8 H ALT 31.8 Alkaline Phosphatase 313.2 H Total Creatine Kinase Troponin I Total Protein 6.45 Albumin 3.53 Globulin 2.92 Albumin/Globulin Ratio 1.20 Amylase 61.6 Lipase 700.4 H 07/06/18 14:50 WBC RBC Hgb Hct MCV MCH MCHC RDW Coeff of Joann Plt Count Immature Gran % (Auto) Neut % (Auto) Lymph % (Auto) [place] % (Auto) Eos % (Auto) Baso % (Auto) Immature Gran # (Auto) Neut # (Auto) Lymph # (Auto) [place] # (Auto) Eos # (Auto) Baso # (Auto) ESR Sodium Potassium Chloride Carbon Dioxide Anion Gap BUN Creatinine Estimated GFR (MDRD) BUN/Creatinine Ratio Glucose Calcium Magnesium Total Bilirubin AST ALT Alkaline Phosphatase Total Creatine Kinase 112.9 Troponin I Pending Total Protein Albumin Globulin Albumin/Globulin Ratio Amylase Lipase Orders Category Date Time Status EKG-(ED ONLY) Stat CARDIO 07/06/18 14:30 Completed BLOOD GLUCOSE MONITORING Q1HR CARE 07/06/18 15:27 Active IV [ED IV/MEDIPORT/POWERPORT] .ONCE EMERGENCY 07/06/18 14:56 Active OXYGEN [ED APPLY O2] .ONCE EMERGENCY 07/06/18 15:23 Active AMYLASE Stat LAB 07/06/18 14:50 Completed CBC W/ AUTO DIFF Stat LAB 07/06/18 14:50 Completed CMP [COMPREHENSIVE METABOLIC PANEL] Stat LAB 07/06/18 14:50 Completed CPK [CREATINE KINASE] Stat LAB 07/06/18 14:50 Results ESR Stat LAB 07/06/18 14:50 Completed LIPASE Stat LAB 07/06/18 14:50 Completed MAGNESIUM Stat LAB 07/06/18 14:50 Completed TROPONIN I Stat LAB 07/06/18 14:50 Results UA [URINALYSIS C & S IF INDICATED] Stat LAB 07/06/18 14:30 Uncollected 0.9 % Sodium Chloride [Saline Flush] MEDS 07/06/18 14:55 Active 1 syr IVF PRN PRN 0.9 % Sodium Chloride [Saline Flush] MEDS 07/06/18 14:56 Active 1 syr IVF PRN PRN Aspirin [Aspirin Chewable] MEDS 07/06/18 15:08 Discontinued 324 mg .ROUTE .STK-MED ONE Aspirin [Aspirin Chewable] MEDS 07/06/18 15:07 Discontinued 81 mg PO ONCE STA Insulin Regular, Human [Humulin R] MEDS 07/06/18 15:25 Discontinued 7 unit SUBCUT ONCE STA Sodium Chloride 0.9% [Sodium Chloride] 1,000 ml MEDS 07/06/18 14:56 Active IV 125 mls/hr CHEST, 1V AP ONLY Stat RADS 07/06/18 14:50 Ordered Medications Generic Name Dose Route Start Last Admin Trade Name Freq PRN Reason Stop Dose Admin Sodium Chloride 1,000 mls @ 125 mls/hr 07/06/18 14:56 Sodium Chloride IV 07/06/18 22:55 .Q8H STA Sodium Chloride 1 syr 07/06/18 14:55 Saline Flush IVF PRN PRN To flush IV Sodium Chloride 1 syr 07/06/18 14:56 Saline Flush IVF PRN PRN To flush IV Discontinued Medications Generic Name Dose Route Start Last Admin Trade Name Freq PRN Reason Stop Dose Admin Aspirin 81 mg 07/06/18 15:07 07/06/18 15:11 Aspirin Chewable PO 07/06/18 15:08 324 mg ONCE STA Administration Insulin Human Regular 7 unit 07/06/18 15:25 Humulin R SUBCUT 07/06/18 15:26 ONCE STA Vital Signs: Temp Pulse Resp BP Pulse Ox 07/06/18 12:56 99.6 F 78 16 146/76 H 94 L Departure - Departure Time of Disposition: 15:40 Disposition: TSF SHORT-TRM HOSP Discharge Problem: 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, Uncontrolled diabetes mellitus Condition: Stable Pt referred to PMD for follow-up: Yes IPMP verified?: No Additional Instructions: Transferred to [facility] Allergies/Adverse Reactions: Allergies Sulfa (Sulfonamide Antibiotics) Adverse Reaction (Verified 07/06/18 13:05) Home Medications: Ambulatory Orders Insulin Glargine,Hum.rec.anlog [Lantus] 50 unit SUBCUT DAILY 06/26/18 Furosemide [Lasix Tab] 40 mg PO DAILY 07/06/18 Losartan Potassium [Cozaar] 100 mg PO DAILY 07/06/18 Nitrofurantoin Macrocrystal [Nitrofurantoin] 1 each PO BID 07/06/18 Transfer Form Completed: Yes Disposition Discussed With: Patient Cardiovascular Complaint Exam - Palpitations Complaint/Exam Symptoms Are: Still present Timing: Intermittent Initial Severity: Moderate Current Severity: Mild Aggravating: Reports: Exertion Alleviating: Reports: Rest Associated Signs and Symptoms: Reports: Chest pain (Heaviness and pressure), Nausea Related Surgical History: Reports: Cardiac Cath (30 yrs ago was normal) Cardiac Risk Factors: Reports: Hypertension, Diabetes Pulmonary Embolism Risk Factors: Reports: None Atrial Fibrillation Risk Factors: Reports: None Thyroid Exam: Normal Differential Diagnoses: CAD
[2018-07-06] MEDS ORDERED: DEXTROSE 50%-WATER ABBOJECT IVP STA (14:57)
[2018-07-06] MEDS: ASPIRIN CHEWABLE PO STA (15:11)
[2018-07-06] MEDS: ASPIRIN CHEWABLE ONE (15:12)
--- NOTE | 2018-07-06 15:40 | DI ---
EXAM: Single view of the chest. History: Chest pain. Comparison: CT abdomen pelvis 06/26/2018 Findings: Interval development of right greater than left bilateral pleural effusions and interstiti al edema. No pneumothorax. No acute osseous abnormalities. Postsurgical changes of the cervical sp ine. Bibasilar pneumonia or atelectasis Impression: Interstitial edema with interval development of right greater than left bilateral pleura l effusions. Bibasilar pneumonia or atelectasis
[2018-07-06] MEDS: SODIUM CHLORIDE 1,000 ML IV STA (15:56)
[2018-07-06] MEDS: HUMULIN R SUBCUT STA (15:56)
== END 2018-07-06 15:45 | disposition short-term general hospital (02) ==
LOC: ED 12:56
DX: I21.11 ST elevation (STEMI) myocardial infarction involving right coronary artery (principal); E10.65 Type 1 diabetes mellitus with hyperglycemia; R06.02 Shortness of breath; I10 Essential (primary) hypertension; E78.5 Hyperlipidemia, unspecified; Z79.4 Long term (current) use of insulin
CPT/HCPCS: 36415; 80053; 82150; 82550; 83690; 83735; 84484; 85025; 85651; 93005; 93010; 99285

== ENCOUNTER 2018-11-12 10:26 | Outpatient (CLI) | END 2018-11-12 10:27 | disposition home or self-care (01) | LOC: LAB 10:26 | PROVIDERS: ATTEND Internal Medicine | DX: R30.0 Dysuria (principal) | CPT/HCPCS: 81001; 87086 ==

== ENCOUNTER 2025-09-05 10:03 | Observation (INO) ==
--- NOTE | 2025-09-05 10:30 | ED.PDOC ---
General HPI ED Provider: Dr. BETINA MARTI MD Chief Complaint: Diabetes Stated Complaint: Patient is a 70-year-old female that reported to the emergency department for elevated blood glucose. Patient stated that she came to pain management this morning and was found to have a blood glucose above 500 mg/dL. Patient stated that she subsequently was sent over to the emergency department to have her blood glucose evaluated. In the emergency department patient is found to have a blood glucose of 449 mg/dL. Patient stated that she does not have any acute symptoms at the current time. Patient stated that she is a diabetic and does take long-acting and short acting insulin on a sliding scale. Patient stated that normally when her blood glucose is above 300 she takes Lantus 20 units and 10 units of regular insulin. Patient stated that she has not been taking her insulin recently as she should. Patient stated that she has been moving to a new residence. Patient stated that for the past couple days while moving she has not kept up with her insulin regimen. Patient stated that this morning she had a couple snack cakes and then came to the hospital for pain management. Patient currently denies any shortness of breath, chest pain, dizziness, syncope, headache, fever, sore throat, nausea, vomiting, diarrhea, or any other acute symptoms not currently mentioned in his HPI. Patient's vital signs are currently stable. Patient's GCS is 15. Time Seen by Provider: 09/05/25 10:05 Mode of Arrival: Walk-In Information Source: Patient Exam Limitations: No limitations Nursing and Triage Documentation Reviewed and Agree: Yes Opioid Naive vs. Tolerant What is Opioid Naive?: *Opioid Naive implies the patient is not already taking opioids or not chronically receiving opioids on a daily basis. *PRN dosing is not "usually" associated with tolerance. *Patients are at higher risk of over-sedation and aspiration. What is Opioid Tolerant?: *Opioid Tolerance implies less than the expected response to an opioid. *Acquired tolerance is defined by the patient taking 60mg of oral morphine daily (or equianalgesic dose of another opioid) for 1 week or more. *Often associated with chronic pain. *May take more than usual dose to achieve desired pain control. Review of Systems Review Of Systems Constitutional: Reports No symptoms Endocrine: Reports Other (Elevated glucose) All Other Systems: Reviewed and Negative [facility] Medical History Radiculopathy, lumbar region M54.16 - Radiculopathy, lumbar region (ICD-10) Lumbar spondylosis M47.816 - Spondylosis without myelopathy or radiculopathy, lumbar region (ICD-10) Chronic bilateral low back pain M54.50 - Low back pain, unspecified (ICD-10) G89.29 - Other chronic pain (ICD-10) Social History Smoking and tobacco status: Former smoker Alcohol intake: never Substance use type: does not use Special kristian needs: No Agree to transfusion: Yes Adopted: No Caregiver/support person: No Foster care: No Household members: spouse Housing: house Marital status: M Lives independently: Yes Number of children: 2 service: No intermediate: No Current occupational status: retired History of recent travel: No Do you think of yourself as: straight/heterosexual Current gender identity: female Seatbelt use: always Drives intoxicated or rides with intoxicated company tanker truck driver: No Water heater temperature set < 120 degrees: Yes Working smoke detector in home: Yes Fire extinguisher in home: Yes Carbon monoxide detector in home: Yes Female Reproductive History Menstrual Hx Hysterectomy: No Hx Tubal Ligation: Yes Physical Exam Physical Exam Appearance: Reports Well-appearing, No pain distress and Well-nourished Ill-appearing: None Pain Distress: None Eyes: Reports TODD, EOMI and Conjunctiva clear ENT: Reports Nose normal and Oropharynx normal Neck: Supple Respiratory: Reports Airway patent, Breath sounds clear, Breath sounds equal and Respirations nonlabored Cardiovascular: Reports RRR, Pulses normal, No rub and No murmur GI/: Reports Soft, Nontender and Bowel sounds normal Musculoskeletal: Reports Normal strength and ROM intact Skin: Reports Warm, Dry and Normal color Neurological: Reports Sensation intact, Motor intact, Alert and Oriented Psychiatric: Reports Affect appropriate and Mood appropriate Physician Progress Note Physician Progress Note: Patient is a 70-year-old female that reported to the emergency department for elevated blood glucose. Patient stated that she came to pain management this morning and was found to have a blood glucose above 500 mg/dL. Patient stated that she subsequently was sent over to the emergency department to have her blood glucose evaluated. In the emergency department patient is found to have a blood glucose of 449 mg/dL. Patient stated that she does not have any acute symptoms at the current time. Patient stated that she is a diabetic and does take long-acting and short acting insulin on a sliding scale. Patient stated that normally when her blood glucose is above 300 she takes Lantus 20 units and 10 units of regular insulin. Patient stated that she has not been taking her insulin recently as she should. Patient stated that she has been moving to a new residence. Patient stated that for the past couple days while moving she has not kept up with her insulin regimen. Patient stated that this morning she had a couple snack cakes and then came to the hospital for pain management. Patient currently denies any shortness of breath, chest pain, dizziness, syncope, headache, fever, sore throat, nausea, vomiting, diarrhea, or any other acute symptoms not currently mentioned in his HPI. Patient's vital signs are currently stable. Patient's GCS is 15. - Will give IV lactated Ringer's 1 L bolus for dehydration. - Will order an Accu-Chek as patient was found to have a blood glucose prior to arrival at pain management. Will order a VBG. - Will order an acetone, urinalysis, and baseline labs. - Patient's Accu-Chek was 449 mg/dL. - Will give the patient her home Lantus dose of 20 units and IV regular insulin 6 units. - Patient was found to have a potassium of 6. Will give the patient 3 albuterol treatments. Patient's already been given a bolus of 6 units of regular insulin which should help bring potassium into the cells. Will also give the patient IV calcium chloride 2 g. Will give 3 albuterol treatments to also help shift the potassium. - On UA patient has glucosuria with a nitrite and leukocyte esterase positive UTI. Will give IV Rocephin 1 g. - VBG is within normal limits. I do not believe the patient has DKA at this time. Will contact hospitalist for admission for this patient's uncontrolled hyperglycemia secondary to diabetes mellitus type 2 and hyperkalemia. -([phone]) called hospitalist to try to get acceptance for this patient for hyperglycemia and hyperkalemia. Hospitalist was unavailable and will contact us back. If hospitalist does not contact us back within the next 5 to 10 minutes I will try to reach them again. [phone]) spoke to hospitalist, AISHWARYA Francis discussed the patient's finding of uncontrolled hyperglycemia with hyperkalemia. Discussed current treatments of fluids, insulin both long and short acting, albuterol treatments for hyper-K. Discussed patient's vital signs are stable at the current time. She has agreed to admit this patient for observation. Course Course 09/05/25 10:31 09/05/25 10:31 Orders, Labs, Meds: Lab Review 09/05/25 09/05/25 09/05/25 10:31 10:52 11:12 WBC 5.58 RBC 3.81 L Hgb 11.3 L Hct 37.0 MCV 97.1 MCH 29.7 MCHC 30.5 L RDW Coeff of Joann 12.2 Plt Count 182 Immature Gran % (Auto) 0.4 Neut % (Auto) 60.1 Lymph % (Auto) 27.8 [place] % (Auto) 6.5 Eos % (Auto) 4.7 Baso % (Auto) 0.5 Neut # (Auto) 3.4 Lymph # (Auto) 1.6 [place] # (Auto) 0.4 Eos # (Auto) 0.3 Baso # (Auto) 0.0 Immature Gran # (Auto) 0.0 VBG pH 7.32 VBG pCO2 48 VBG pO2 37 VBG HCO3 24.7 VBG O2 Saturation 65.1 Sodium 131.0 L Potassium 6.06 H* Chloride 101.2 Carbon Dioxide 21.5 L Anion Gap 14.36 BUN 34.5 H Creatinine 1.21 Estimated GFR (MDRD) 44.00 BUN/Creatinine Ratio 28.51 Glucose 508.5 H* Calcium 8.82 Urine Color Light Urine Clarity Slightly Urine pH 6.0 Ur Specific [place] 1.020 Urine Protein Negative Urine Glucose (UA) 3+ H Urine Ketones Negative Urine Blood Trace-intact H Urine Nitrite Positive H Urine Bilirubin Negative Urine Urobilinogen 0.2 Ur Leukocyte Esterase 1+ H Urine Microscopic RBC 2-5 Urine Microscopic WBC 5-10 Ur Squamous Epith Cells 10-20 Ur Renal Epithelial Cell 2-5 Urine Bacteria 3+ Urine Mucus Trace Acetone, Qual None Orders Category Date Time Status NEBULIZER TREATMENT Stat CARDIO 09/05/25 11:08 Ordered NEBULIZER TREATMENT Stat CARDIO 09/05/25 11:08 Ordered NEBULIZER TREATMENT Stat CARDIO 09/05/25 11:08 Ordered ACCUCHECK (ED) [ED ACCUCHECK ASSESSMENT] .ONCE EMERGENCY 09/05/25 10:24 Active ACETONE, QUALITATIVE Stat LAB 09/05/25 10:31 Completed BMP [BASIC METABOLIC PANEL] Stat LAB 09/05/25 10:31 Completed CBC W/ AUTO DIFF Stat LAB 09/05/25 10:31 Completed URINALYSIS C & S IF INDICATED Stat LAB 09/05/25 10:52 Completed URINE CULTURE Stat LAB 09/05/25 10:52 Received VBG [VENOUS BLOOD GAS] Stat LAB 09/05/25 11:12 Completed Albuterol Sulfate 0.083% Neb [Albuterol 0.083% Neb] Meds 09/05/25 11:07 Discontinued 2.5 mg NEB ONCE STA Albuterol Sulfate 0.083% Neb [Albuterol 0.083% Neb] Meds 09/05/25 11:08 Discontinued 2.5 mg NEB ONCE STA Albuterol Sulfate 0.083% Neb [Albuterol 0.083% Neb] Meds 09/05/25 11:08 Discontinued 2.5 mg NEB ONCE STA Calcium Chloride Syringe [Calcium Chloride 10%] Meds 09/05/25 11:05 Discontinued 1,000 mg IVP ONCE STA Ceftriaxone 1 gm Vial [Rocephin 1 gm Vial] Meds 09/05/25 11:23 Discontinued 1 gm IVP ONCE ONE Insulin Glargine,Hum.rec.anlog [Lantus] Meds 09/05/25 10:52 Discontinued 20 unit SUBCUT ONCE STA Insulin Regular, Human [Humulin R (10Ml)] Meds 09/05/25 10:52 Discontinued 6 unit IVP ONCE STA Ringers Lactated Solution [Lactated Ringers] 1,000 ml Meds 09/05/25 10:24 Discontinued IV BOLUS Medications Discontinued Medications Generic Name Dose Route Start Last Admin Trade Name Freq PRN Reason Stop Dose Admin Albuterol Sulfate 2.5 mg 09/05/25 11:07 Albuterol Sulfate 0.083% Vial.Neb NEB 09/05/25 11:08 ONCE STA Albuterol Sulfate 2.5 mg 09/05/25 11:08 Albuterol Sulfate 0.083% Vial.Neb NEB 09/05/25 11:09 ONCE STA Albuterol Sulfate 2.5 mg 09/05/25 11:08 Albuterol Sulfate 0.083% Vial.Neb NEB 09/05/25 11:09 ONCE STA Calcium Chloride 1,000 mg 09/05/25 11:05 09/05/25 11:12 Calcium Chloride 1000 Mg/10 Ml Syringe IVP 09/05/25 11:06 1,000 mg ONCE STA Administration Ceftriaxone Sodium 1 gm 09/05/25 11:23 Ceftriaxone 1 Gm Vial IVP 09/05/25 11:24 ONCE ONE Lactated Ringer's 1,000 mls @ 1,000 mls/hr 09/05/25 10:24 09/05/25 10:45 Lactated Ringers IV 09/05/25 11:23 1,000 mls/hr BOLUS ONE Administration Insulin Glargine 20 unit 09/05/25 10:52 09/05/25 11:05 Insulin Glargine,Hum.Rec.Anlog 100 Units/Ml SUBCUT 09/05/25 10:53 20 unit ONCE STA Administration Insulin Human Regular 6 unit 09/05/25 10:52 09/05/25 11:00 Insulin Regular, Human 100 Unit/Ml (10ml) Vial 0.1 unit/kg (6 unit) 09/05/25 10:53 6 unit IVP Administration ONCE STA Vital Signs: Temp Pulse Resp BP Pulse Ox 09/05/25 10:08 97.8 F 45 L 20 142/59 H 98 Discharge Plan Discharge Patient Disposition: PLACED OBSERVATION Discharge Problem: Dehydration, Acute hyperkalemia, Glucosuria Hyperglycemia due to type 2 diabetes mellitus Qualifiers: Diabetes mellitus residential insulin use: with residential use Qualified Code(s): E11.65 - Type 2 diabetes mellitus with hyperglycemia UTI (urinary tract infection) Qualifiers: Urinary tract infection type: acute cystitis Hematuria presence: without hematuria Qualified Code(s): N30.00 - Acute cystitis without hematuria Did you review [place] [employer]MI[employer] PROF[employer]OR for ALL controlled substances?: Not Applicable ED Provider: BETINA MARTI Condition: Stable
[2025-09-05 10:38] LABS: IMMATURE GRANULOCYTE # (AUTO) 0.0 (0.0-1.0); IMMATURE GRANULOCYTE % (AUTO) 0.4 % (0.0-5.0); RDW COEFFICIENT OF VARIATION 12.2 % (11.6-14.8)
[2025-09-05] MEDS: LACTATED RINGERS 1,000 ML IV ONE (10:45)
[2025-09-05 10:50] LABS: CREATININE 1.21 mg/dL (0.60-1.30)
[2025-09-05] MEDS: HUMULIN R (10ML) IVP STA (11:00)
[2025-09-05] MEDS: LANTUS SUBCUT STA (11:05)
[2025-09-05] MEDS: CALCIUM CHLORIDE 10% IVP STA (11:12)
[2025-09-05 11:14] LABS: LEUKOCYTE ESTERASE ,URINE 1+ (NEGATIVE); URINE, BLOOD Trace-intact (NEGATIVE)
[2025-09-05 11:21] LABS: GLUCOSE, URINE (UA) 3+ (NEGATIVE)
[2025-09-05 11:23] LABS: VBG HCO3 24.7 (22-26); VBG OXYGEN SATURATION 65.1 (60-80); VBG PCO2 48.0 (40-50); VBG PH 7.32 (7.30-7.40); VBG PO2 37.0 (36-42)
[2025-09-05] MEDS: ALBUTEROL 0.083% NEB NEB STA ×3 (11:36→11:49)
[2025-09-05] MEDS: ROCEPHIN 1 GM VIAL IVP ONE (11:50)
[2025-09-05 13:10] VITALS: BMI 24.3
[2025-09-05] MEDS ORDERED: TYLENOL PO PRN (13:28)
[2025-09-05] MEDS ORDERED: DEXTROSE 50%-WATER ABBOJECT IVP PRN (13:28)
[2025-09-05] MEDS ORDERED: NORCO 7.5-325 PO PRN (13:30)
[2025-09-05 13:55] LABS: CREATININE 1.06 mg/dL (0.60-1.30)
[2025-09-05] MEDS: HUMALOG (10 ML VIAL) SUBCUT PRN (14:21)
[2025-09-05] MEDS: NEURONTIN PO SCH (14:22)
[2025-09-05] MEDS: WELCHOL PO SCH (14:22)
--- NOTE | 2025-09-05 14:37 | PCM ---
Date of Service Date Seen by Provider: 09/05/25 Time Seen by Provider: 13:00 Admit Day/Time Admission Date: 09/05/25 Admission Time: 11:35 Reason for Admission Chief Complaint: ACUTE HYPERGLYCEMIA,KYPERKALEMIA,UTI Hospital Provider Hospital Provider: PASCUAL TUCKER [facility] History of Present Illness History of Present Illness: Patient is a 70-year-old female with past medical history of diabetes, CKD, hypertension, neuropathy, CAD status post CABG, PAD who presents to the ER with chief complaint of hyperglycemia. Patient was being seen in pain management for procedure and was noted to have glucose greater than 500. Patient states she has not been very compliant with her medications as she has been busy renovating her house. She states that she did not take her long-acting insulin yesterday or this morning. She states she usually takes Basaglar 25 twice daily, but this also just depends on how her sugars are running. She also does a sliding scale with NovoLog, max dose of 10 units with meals. She was also noted to have a potassium of 6. She is not sure why this is elevated. She does take Lasix as needed but has not taken it in several days. She is prescribed potassium but states she also has not been taking this recently. She was given calcium gluconate, albuterol treatments, and IV insulin in the ER. She was also noted to have a suspected UTI and given Rocephin. Admitted to [facility] for hyperglycemia and hyperkalemia. No EKG changes noted. Case Discussed With Case Discussed With: Patient's case was discussed with the ER Physicians, Dr. Mcintosh. [facility] Medical History Radiculopathy, lumbar region M54.16 - Radiculopathy, lumbar region (ICD-10) Lumbar spondylosis M47.816 - Spondylosis without myelopathy or radiculopathy, lumbar region (ICD-10) Chronic bilateral low back pain M54.50 - Low back pain, unspecified (ICD-10) G89.29 - Other chronic pain (ICD-10) Family History Mother Myocardial infarct FATHER Stomach ulcer Alcohol abuse Social History Smoking and tobacco status: Former smoker Alcohol intake: never Substance use type: does not use Special kristian needs: No Agree to transfusion: Yes Adopted: No Caregiver/support person: No Foster care: No Household members: spouse Housing: house Marital status: M Lives independently: Yes Number of children: 2 service: No USP: No Current occupational status: retired History of recent travel: No Do you think of yourself as: straight/heterosexual Current gender identity: female Seatbelt use: always Drives intoxicated or rides with intoxicated 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 Water heater temperature set < 120 degrees: Yes Working smoke detector in home: Yes Fire extinguisher in home: Yes Carbon monoxide detector in home: Yes Allergies Allergies Allergy/AdvReac Type Severity Reaction Status Date / Time clarithromycin (From Biaxin) Allergy Rash Verified 09/05/25 11:20 Sulfa (Sulfonamide Allergy Rash Verified 09/05/25 11:24 Antibiotics) Current Medications Home Medications Acetaminophen (Acetaminophen 325 Mg Tablet) 650 mg PO Q4H PRN PRN Reason: Mild Pain Hydrocodone Bitart/Acetaminophen (Hydrocodone Bit/Acetaminophen 7.5/325 Mg Tablet) 1 tab PO BID PRN PRN Reason: MODERATE PAIN Amlodipine Besylate (Amlodipine Besylate 5 Mg Tablet) 10 mg PO DAILY [facility] Aspirin (Aspirin 81 Mg Tablet.) 81 mg PO DAILY [facility] Atorvastatin Calcium (Atorvastatin Calcium 20 Mg Tablet) 40 mg PO DAILY [facility] Carvedilol (Carvedilol 6.25 Mg Tablet) 6.25 mg PO BIDWM2 [facility] Cilostazol (Cilostazol 100 Mg Tablet) 50 mg PO BID [facility] Clopidogrel Bisulfate (Clopidogrel Bisulfate 75 Mg Tablet) 75 mg PO DAILY [facility] Colesevelam HCl (Colesevelam Hcl 625 Mg Tablet) 1,250 mg PO TID [facility] Last Admin: 09/05/25 14:22 Dose: 1,250 mg Dextrose (Dextrose 50 % In Water 50 Ml Disp.Syrin) 50 ml IVP ONCE PRN; Protocol PRN Reason: Unconscious Hypoglycemia Ferrous Sulfate (Ferrous Sulfate 324 Mg Tablet.) 324 mg PO DAILY [facility] Fluoxetine HCl (Fluoxetine Hcl 20 Mg Capsule) 40 mg PO DAILY [facility] Gabapentin (Gabapentin 300 Mg Capsule) 600 mg PO TID [facility] Last Admin: 09/05/25 15:38 Dose: Not Given Insulin Human Lispro (Insulin Lispro 100 Unit/Ml (10 Ml Vial)) 0 unit SUBCUT PRN PRN; Protocol PRN Reason: Hyperglycemia Last Admin: 09/05/25 14:21 Dose: 10 unit Lamotrigine (Lamotrigine 25 Mg Tablet) 75 mg PO BID [facility] Losartan Potassium (Losartan Potassium 100 Mg Tablet) 100 mg PO DAILY [facility] Ondansetron HCl (Ondansetron Hcl/Pf 4 Mg/2 Ml Sdv) 4 mg IVP Q6H PRN PRN Reason: Nausea / Vomiting Tizanidine HCl (Tizanidine Hcl 4 Mg Tablet) 4 mg PO DAILY PRN PRN Reason: MUSCLE SPASMS Topiramate (Topiramate 50 Mg Tablet) 50 mg PO BID [facility] aspirin 81 mg tablet,delayed release (Adult Low Dose Aspirin) 81 mg PO QDAY 07/09/23 [History Confirmed 09/05/25] furosemide 40 mg tablet 40 mg PO DAILY PRN edema 07/09/23 [History Confirmed 09/05/25] lamotrigine 25 mg tablet 75 mg PO BID 07/09/23 [History Confirmed 09/05/25] topiramate 50 mg tablet (Topamax) 50 mg PO BID 07/09/23 [History Confirmed 09/05/25] hydrocodone 7.5 mg-acetaminophen 325 mg tablet 1 tab PO BID PRN pain #60 tabs 08/26/23 [Rx Confirmed 09/05/25] cilostazol 50 mg tablet 50 mg PO BID 09/10/23 [History Confirmed 09/05/25] potassium chloride 10 mEq tablet,extended release 10 meq PO QDAY 09/10/23 [History Confirmed 09/05/25] blood-glucose sensor ([employer]ex[employer] [place] G7 Sensor device) #1 ea 11/11/23 [Rx Confirmed 09/05/25] blood-glucose,compensation administrator,cont (Dexcom G7 Legal Records Manager) #1 ea 11/11/23 [Rx Confirmed 09/05/25] colesevelam 625 mg tablet 1,250 mg PO TID 12/23/23 [History Confirmed 09/05/25] ferrous sulfate 325 mg (65 mg iron) tablet 325 mg PO QDAY 05/03/24 [History Confirmed 09/05/25] gabapentin 600 mg tablet 600 mg PO TID #270 tabs 02/02/25 [Rx Confirmed 09/05/25] multivitamin (Daily Multi-Vitamin tablet) 1 tab PO DAILY 05/17/25 [History Co nfirmed 09/05/25] tizanidine 4 mg capsule 4 mg PO PRN PRN muscle spasticity 05/17/25 [History Confirmed 09/05/25] atorvastatin 40 mg tablet See Rx Instructions .Route .COMPLEX #90 tabs 06/06/25 [Rx Confirmed 09/05/25] lidocaine 5 % topical patch 1 patch topical QDAY #30 ea 07/10/25 [Rx Confirmed 09/05/25] insulin aspart U-100 100 unit/mL subcutaneous cartridge (Novolog PenFill U-100 Insulin aspart) 1 sliding scale dose subcut USEASDIRECTD #15 mL 07/31/25 [Rx Confirmed 09/05/25] fluoxetine 40 mg capsule 40 mg PO DAILY #90 caps 08/07/25 [Rx Confirmed 09/05/25] amlodipine 10 mg tablet 10 mg PO DAILY #90 tabs 09/04/25 [Rx Confirmed 09/05/25] carvedilol 6.25 mg tablet 6.25 mg PO 2XD #180 tabs 09/04/25 [Rx Confirmed 09/05/25] clopidogrel 75 mg tablet 75 mg PO DAILY #90 tabs 09/04/25 [Rx Confirmed 09/05/25] losartan 100 mg tablet 100 mg PO DAILY #90 tabs 09/04/25 [Rx Confirmed 09/05/25] insulin aspart U-100 100 unit/mL subcutaneous solution 1 unit subcut DIRECTED 09/05/25 [History Confirmed 09/05/25] insulin glargine 100 unit/mL (3 mL) subcutaneous pen (Basaglar KwikPen U-100 Insulin) 20 unit subcut BID 09/05/25 [History Confirmed 09/05/25] Opioid Naive vs. Tolerant Does Patient Take Opioids?: Yes Is Patient Opioid Naive?: No What is Opioid Naive?: *Opioid Naive implies the patient is not already taking opioids or not chronically receiving opioids on a daily basis. *PRN dosing is not "usually" associated with tolerance. *Patients are at higher risk of over-sedation and aspiration. Is Patient Opioid Tolerant?: No What is Opioid Tolerant?: *Opioid Tolerance implies less than the expected response to an opioid. *Acquired tolerance is defined by the patient taking 60mg of oral morphine daily (or equianalgesic dose of another opioid) for 1 week or more. *Often associated with chronic pain. *May take more than usual dose to achieve desired pain control. Review of Systems Constitutional: Denies Fever Head: Reports Normocephalic and Atraumatic Cardiovascular: Denies Chest pain or Edema Respiratory: Denies Cough or Shortness of air Gastrointestinal: Denies Nausea, Vomiting, Diarrhea, Abdominal pain or Melena Neurological: Denies Headache, Dizziness or Syncope Physical examination Most Recent Vital Signs: Most Recent Vital Signs Temperature 97.3 F L 09/05/25 12:51 Temperature Source Temporal Artery Scan 09/05/25 12:51 Temperature Source Infrared 09/05/25 10:08 Pulse Rate 50 L 09/05/25 12:51 Respiratory Rate 18 09/05/25 12:51 Blood Pressure 142/59 H 09/05/25 10:08 Blood Pressure Left Arm 97/82 09/05/25 12:51 Blood Pressure Position Sitting 09/05/25 12:51 O2 Sat by Pulse Oximetry 97 09/05/25 12:51 Oxygen Delivery Method Room Air 09/05/25 12:51 Height 5 ft 4 in 09/05/25 12:51 Weight 64.4 kg 09/05/25 12:51 Appearance: Positive No Apparent Distress and Alert and Oriented x3 Skin: Positive [place], Warm and Good Turgor HEENT: Positive Normocephalic and Atraumatic Neck: Positive Supple and Midline Trachea Chest/Lungs: Positive Clear to Auscultation Bilaterally; Negative Rales, Rhonci or Wheezes Heart: Positive RRR GI/: Positive Soft, Nontender, Bowel Sounds Normal and No Distention Extremities: Negative Edema Neurological: Positive Cranial Nerves Intact, Alert, Oriented and Muscle Strength 5/5 in Upper and Lower Extremities Bilaterally Psychiatric: Positive Oriented x4, Appropriate Mood and Appropriate Affect Labs This Visit Labs This Visit: Labs This Visit 09/05/25 09/05/25 09/05/25 10:31 10:52 11:12 WBC 5.58 RBC 3.81 L Hgb 11.3 L Hct 37.0 MCV 97.1 MCH 29.7 MCHC 30.5 L RDW Coeff of Joann 12.2 Plt Count 182 Immature Gran % (Auto) 0.4 Neut % (Auto) 60.1 Lymph % (Auto) 27.8 [place] % (Auto) 6.5 Eos % (Auto) 4.7 Baso % (Auto) 0.5 Neut # (Auto) 3.4 Lymph # (Auto) 1.6 [place] # (Auto) 0.4 Eos # (Auto) 0.3 Baso # (Auto) 0.0 Immature Gran # (Auto) 0.0 VBG pH 7.32 VBG pCO2 48 VBG pO2 37 VBG HCO3 24.7 VBG O2 Saturation 65.1 Sodium 131.0 L Potassium 6.06 H* Chloride 101.2 Carbon Dioxide 21.5 L Anion Gap 14.36 BUN 34.5 H Creatinine 1.21 Estimated GFR (MDRD) 44.00 BUN/Creatinine Ratio 28.51 Glucose 508.5 H* Calcium 8.82 Urine Color Light Urine Clarity Slightly Urine pH 6.0 Ur Specific [place] 1.020 Urine Protein Negative Urine Glucose (UA) 3+ H Urine Ketones Negative Urine Blood Trace-intact H Urine Nitrite Positive H Urine Bilirubin Negative Urine Urobilinogen 0.2 Ur Leukocyte Esterase 1+ H Urine Microscopic RBC 2-5 Urine Microscopic WBC 5-10 Ur Squamous Epith Cells 10-20 Ur Renal Epithelial Cell 2-5 Urine Bacteria 3+ Urine Mucus Trace Acetone, Qual None 09/05/25 13:36 WBC RBC Hgb Hct MCV MCH MCHC RDW Coeff of Joann Plt Count Immature Gran % (Auto) Neut % (Auto) Lymph % (Auto) [place] % (Auto) Eos % (Auto) Baso % (Auto) Neut # (Auto) Lymph # (Auto) [place] # (Auto) Eos # (Auto) Baso # (Auto) Immature Gran # (Auto) VBG pH VBG pCO2 VBG pO2 VBG HCO3 VBG O2 Saturation Sodium 133.5 L Potassium 4.92 Chloride 104.8 Carbon Dioxide 23.3 Anion Gap 10.32 BUN 31.2 H Creatinine 1.06 Estimated GFR (MDRD) 52.00 BUN/Creatinine Ratio 29.43 Glucose 306.6 H D Calcium 9.90 Urine Color Urine Clarity Urine pH Ur Specific [place] Urine Protein Urine Glucose (UA) Urine Ketones Urine Blood Urine Nitrite Urine Bilirubin Urine Urobilinogen Ur Leukocyte Esterase Urine Microscopic RBC Urine Microscopic WBC Ur Squamous Epith Cells Ur Renal Epithelial Cell Urine Bacteria Urine Mucus Acetone, Qual Review Statement Review Statement: I have independently reviewed and interpreted the labs/EKGs/imaging that were ordered by the ER provider. I have reviewed all outside records that are available currently in our EMR including imaging/notes/labs from previous visits. Plan Plan: 1. Acute hyperkalemia - 6.0. No EKG changes. Repeat bmp showing normalization of K. Will cont to monitor. Tele. Hold K supplement, although patient states she hasn't been taking it. 2. Hyperglycemia due to uncontrolled DMT2 and noncompliance - Cont long acting and moderate sliding scale, diabetic diet, check a1c. 3. CAD - Cont home meds 4. PAD - Cont home meds 5. Hypertension - Cont home meds 6. Hyperlipidemia - Cont home meds 7. Suspect UTI - Covered with rocephin, follow uc. DVT Prophylaxis: Ambulation Time Spent: Greater than 80 minutes spent with patient, 50% of the time spent with this patient was devoted to counseling and coordination of care. [facility]annin minutes spent discussing advance care planning. Admit to: Obs Discussed Plan of Care with Dr. Derrek Solis. Medications Medication Orders: Medications Ordered Category Date Time Status Acetaminophen [Tylenol] Meds 09/05/25 13:28 Active 650 mg PO Q4H PRN Amlodipine Besylate [Norvasc] Meds 09/06/25 09:00 Active 10 mg PO DAILY Aspirin [Aspirin EC] Meds 09/06/25 09:00 Active 81 mg PO DAILY Atorvastatin Calcium [Lipitor] Meds 09/06/25 09:00 Active 40 mg PO DAILY Carvedilol [Coreg] Meds 09/05/25 17:00 Active 6.25 mg PO BIDWM2 Cilostazol [Pletal] Meds 09/05/25 21:00 Active 50 mg PO BID Clopidogrel Bisulfate [Plavix] Meds 09/06/25 09:00 Active 75 mg PO DAILY Colesevelam HCl [Welchol] Meds 09/05/25 15:00 Active 1,250 mg PO TID Dextrose 50 % in Water [Dextrose 50%-Water Abboject] Meds 09/05/25 13:28 Active 50 ml IVP ONCE PRN Ferrous Sulfate Meds 09/06/25 09:00 Active 324 mg PO DAILY Fluoxetine HCl [Prozac] Meds 09/06/25 09:00 Active 40 mg PO DAILY Gabapentin [Neurontin] Meds 09/05/25 13:35 Active 600 mg PO TID Hydrocodone Bit/Acetaminophen [[place] 7.5-325] Meds 09/05/25 13:30 Active 1 tab PO BID PRN MODPAIN MODERATE PAIN Insulin Lispro [Humalog (10 ml Vial)] Meds 09/05/25 13:28 Active See Protocol SUBCUT PRN PRN Lamotrigine [Lamictal] Meds 09/05/25 21:00 Active 75 mg PO BID Losartan Potassium [Cozaar] Meds 09/06/25 09:00 Active 100 mg PO DAILY Ondansetron HCl/Pf [Zofran Sdv] Meds 09/05/25 13:28 Active 4 mg IVP Q6H PRN Tizanidine HCl [Zanaflex] Meds 09/05/25 13:47 Active 4 mg PO DAILY PRN Topiramate [Topamax] Meds 09/05/25 21:00 Active 50 mg PO BID
[2025-09-05] MEDS: COREG PO SCH (17:07)
[2025-09-05] MEDS: PLETAL PO SCH (21:01)
[2025-09-05] MEDS: LAMICTAL PO SCH (21:01)
[2025-09-05] MEDS: TOPAMAX PO SCH (21:01)
[2025-09-05] MEDS: ZOFRAN SDV IVP PRN (21:20)
[2025-09-05] MEDS: ZANAFLEX PO PRN (21:20)
[2025-09-06 05:27] LABS: IMMATURE GRANULOCYTE # (AUTO) 0.0 (0.0-1.0); IMMATURE GRANULOCYTE % (AUTO) 0.2 % (0.0-5.0); RDW COEFFICIENT OF VARIATION 12.5 % (11.6-14.8)
[2025-09-06 05:47] LABS: CREATININE 1.6 mg/dL (0.60-1.30)
[2025-09-06] MEDS: FERROUS SULFATE PO SCH (08:11)
[2025-09-06] MEDS: PLAVIX PO SCH (08:11)
[2025-09-06] MEDS: ASPIRIN EC PO SCH (08:11)
[2025-09-06] MEDS: COZAAR PO SCH (08:12)
[2025-09-06] MEDS: LIPITOR PO SCH (08:12)
[2025-09-06] MEDS: NORVASC PO SCH (08:12)
[2025-09-06] MEDS: PROZAC PO SCH (08:13)
[2025-09-06] MEDS: SODIUM CHLORIDE 1,000 ML IV ONE (09:16)
[2025-09-06] MEDS: LOKELMA PO ONE (09:16)
[2025-09-06] MEDS: HUMULIN R (10ML) IVP STA (09:17)
[2025-09-06] MEDS: ROCEPHIN 1 GM/50 ML D5W 1 GM/50 ML BAG IV SCH (09:17)
[2025-09-06 10:58] VITALS: RESP 16
[2025-09-06 14:21] LABS: CREATININE 1.32 mg/dL (0.60-1.30)
--- NOTE | 2025-09-06 14:40 | DCSUM ---
Admission Date Admission Date: 09/05/25 Discharge Date Discharge Date: 09/06/25 Admission Diagnosis Admission Diagnosis: 1. Acute hyperkalemia 2. Hyperglycemia due to uncontrolled DMT2 and noncompliance Discharge Diagnosis Discharge Diagnosis: 1. Acute hyperkalemia - resolved 2. Hyperglycemia due to uncontrolled DMT2 and noncompliance - improved 3. MO, stage I - improved 4. UTI 5. CAD 6. PAD 7. Hypertension 8. Hyperlipidemia Hospital Provider Hospital Provider: PASCUAL TUCKER [facility] Summary of History and Physical Summary of History and Physical: Patient is a 70-year-old female with past medical history of diabetes, CKD, hypertension, neuropathy, CAD status post CABG, PAD who presents to the ER with chief complaint of hyperglycemia. Patient was being seen in pain management for procedure and was noted to have glucose greater than 500. Patient states she has not been very compliant with her medications as she has been busy renovating her house. She states that she did not take her long-acting insulin yesterday or this morning. She states she usually takes Basaglar 25 twice daily, but this also just depends on how her sugars are running. She also does a sliding scale with NovoLog, max dose of 10 units with meals. She was also noted to have a potassium of 6. She is not sure why this is elevated. She does take Lasix as needed but has not taken it in several days. She is prescribed potassium but states she also has not been taking this recently. She was given calcium gluconate, albuterol treatments, and IV insulin in the ER. She was also noted to have a suspected UTI and given Rocephin. Admitted to [facility] for hyperglycemia and hyperkalemia. No EKG changes noted. Hospital Course Subjective: Patient's potassium initially improved but then increased again. She was given iv insulin and lokelma. Her Cr had also bumped overnight, so she was given IV fluids. Repeat bmp showed improved Cr and normal potassium. A1c was 11. Patient has not been taking her medications or insulin consistently. Encouraged her to monitor her sugars and be more compliant with her medications and f/u with pcp. She has not been taking her potassium supplement as of late, but told her to continue holding it for now until f/u w/ pcp. Urine culture is growing gram negative rods, will send in cefpodoxime for her. Patient agrees to plan of care. Appearance: Pleasant, No Apparent Distress and Alert HEENT: MMM CVS: Other (RRR) Abdomen: Soft, Non-Tender and No Distention Respiratory: No Accessory Muscle Use Extremities: No Edema Vital Signs: Most Recent Vital Signs Temperature 98.6 F 09/06/25 10:00 Temperature Source Temporal Artery Scan 09/06/25 10:00 Temperature Source Infrared 09/05/25 10:08 Pulse Rate 59 L 09/06/25 10:00 Respiratory Rate 16 09/06/25 10:00 Blood Pressure 122/58 L 09/06/25 10:00 Blood Pressure Mean 79 09/06/25 10:00 Blood Pressure Left Arm 97/82 09/05/25 12:51 Blood Pressure Location Right Arm 09/06/25 10:00 Blood Pressure Position Supine 09/06/25 05:40 O2 Sat by Pulse Oximetry 97 09/06/25 10:00 Oxygen Delivery Method Room Air 09/06/25 14:00 Height 5 ft 4 in 09/05/25 12:51 Weight 64.4 kg 09/05/25 12:51 Telemetry Type Remote Telemetry 09/06/25 13:00 Telemetry Monitoring Continues 09/06/25 13:00 Irregular Telemetry Rate (Approximate) 50-60 BPM 09/05/25 19:00 Telemetry Heart Rate 58 L 09/06/25 13:00 EKG ID Interval 0.16 09/06/25 13:00 EKG QRS Interval 0.08 09/06/25 13:00 Telemetry Strip Reading Sinus Bradycardia 09/06/25 13:00 Lab Results Last 24 Hours: 09/06/25 09/06/25 14:05 05:07 WBC 5.26 RBC 3.37 L Hgb 10.3 L Hct 33.3 L MCV 98.8 MCH 30.6 MCHC 30.9 L RDW Coeff of Joann 12.5 Plt Count 171 Immature Gran % (Auto) 0.2 Neut % (Auto) 52.5 Lymph % (Auto) 34.8 [place] % (Auto) 7.0 Eos % (Auto) 5.1 Baso % (Auto) 0.4 Neut # (Auto) 2.8 Lymph # (Auto) 1.8 [place] # (Auto) 0.4 Eos # (Auto) 0.3 Baso # (Auto) 0.0 Immature Gran # (Auto) 0.0 Sodium 135.7 136.8 Potassium 4.52 5.48 H Chloride 107.0 108.0 H Carbon Dioxide 21.1 L 24.8 Anion Gap 12.12 9.48 BUN 32.0 H 36.0 H Creatinine 1.32 H 1.60 H D Estimated GFR (MDRD) 40.00 32.00 BUN/Creatinine Ratio 24.24 22.50 Glucose 246.8 H D 317.0 H Hemoglobin A1c 11.24 H D Calcium 8.19 L 8.81 Total Bilirubin 0.18 L AST 28.2 ALT 28.7 Alkaline Phosphatase 140.5 Total Protein 5.64 L Albumin 3.22 L Globulin 2.42 Albumin/Globulin Ratio 1.33 Discharge Instructions Discharge Planning: Discharge Planning > [address] Derrek Solis. Discharge Medications: Medications at Discharge (Home Meds & RX) aspirin 81 mg tablet,delayed release (Adult Low Dose Aspirin) 81 mg PO QDAY 07/09/23 furosemide 40 mg tablet 40 mg PO DAILY PRN edema 07/09/23 lamotrigine 25 mg tablet 75 mg PO BID 07/09/23 topiramate 50 mg tablet (Topamax) 50 mg PO BID 07/09/23 hydrocodone 7.5 mg-acetaminophen 325 mg tablet 1 tab PO BID PRN pain #60 tabs 08/26/23 cilostazol 50 mg tablet 50 mg PO BID 09/10/23 blood-glucose sensor ([employer] G7 Sensor device) #1 ea 11/11/23 blood-glucose,manager of manufacturing,cont ([employer]ex[employer] G7 Economic Research Analyst) #1 ea 11/11/23 colesevelam 625 mg tablet 1,250 mg PO TID 12/23/23 ferrous sulfate 325 mg (65 mg iron) tablet 325 mg PO QDAY 05/03/24 gabapentin 600 mg tablet 600 mg PO TID #270 tabs 02/02/25 multivitamin (Daily Multi-Vitamin tablet) 1 tab PO DAILY 05/17/25 tizanidine 4 mg capsule 4 mg PO PRN PRN muscle spasticity 05/17/25 atorvastatin 40 mg tablet See Rx Instructions .Route .COMPLEX #90 tabs 06/06/25 lidocaine 5 % topical patch 1 patch topical QDAY #30 ea 07/10/25 insulin aspart U-100 100 unit/mL subcutaneous cartridge (Novolog PenFill U-100 Insulin aspart) 1 sliding scale dose subcut USEASDIRECTD #15 mL 07/31/25 fluoxetine 40 mg capsule 40 mg PO DAILY #90 caps 08/07/25 amlodipine 10 mg tablet 10 mg PO DAILY #90 tabs 09/04/25 carvedilol 6.25 mg tablet 6.25 mg PO 2XD #180 tabs 09/04/25 clopidogrel 75 mg tablet 75 mg PO DAILY #90 tabs 09/04/25 losartan 100 mg tablet 100 mg PO DAILY #90 tabs 09/04/25 insulin aspart U-100 100 unit/mL subcutaneous solution 1 unit subcut DIRECTED 09/05/25 insulin glargine 100 unit/mL (3 mL) subcutaneous pen (Basaglar KwikPen U-100 Insulin) 20 unit subcut BID 09/05/25 cefpodoxime 100 mg tablet 100 mg PO BID 5 days #10 tabs 09/06/25 Discharge Plan Discharge Discharge Orders: Discharge Patient (ONCE); Ordered 09/06/25 Ordered By: PASCUAL TUCKER Activity Restrictions/Additional Instructions: DISCHARGE TO HOME DX: HYPERKALEMIA, DEHYDRATION, HYPERGLYCEMIA, UTI FOLLOW UP WITH PCP DIET: DIABETIC ACTIVITY: TOLERATED MONITOR YOUR SUGAR AT HOME, WRITE IT DOWN, AND TAKE TO YOUR PCP. YOUR A1C IS 11. YOUR SUGARS ARE CHRONICALLY TOO HIGH. PLEASE HOLD POTASSIUM SUPPLEMENT Instructions: Diabetic Hyperglycemia (ED) Care Plan Goals: Problem: Fluid and electrolyte imbalance Goal: Maintain fluid and electrolyte balance Instructions: Monitor I/O as needed Obtain labs related to electrolytes Problem: Altered Blood Glucose Level Goal: Maintain blood glucose level Within Normal Limits Instructions: Diet as ordered Diet consult if indicated Monitor accucheck levels Monitor signs/symptoms of altered glucose Patient Disposition: HOME SELF-CARE Prescriptions: New cefpodoxime 100 mg tablet 100 mg PO BID 5 Days Qty: 10 0RF Rx Instructions: must administer with a meal/food Continued hydrocodone-acetaminophen 7.5-325 mg tablet 1 tab PO BID PRN (Reason: pain) Qty: 60 0RF atorvastatin 40 mg tablet See Rx Instructions .ROUTE .COMPLEX Qty: 90 1RF Dose Instruction: TAKE 1 TABLET BY MOUTH EVERY DAY Rx Instructions: TAKE 1 TABLET BY MOUTH EVERY DAY insulin aspart U-100 [Novolog PenFill U-100 Insulin] 100 unit/mL cartridge 1 sliding scale dose subcut USEASDIRECTD Qty: 15 0RF fluoxetine 40 mg capsule 40 mg PO DAILY Qty: 90 1RF amlodipine 10 mg tablet 10 mg PO DAILY Qty: 90 1RF losartan 100 mg tablet 100 mg PO DAILY Qty: 90 1RF carvedilol 6.25 mg tablet 6.25 mg PO 2XD Qty: 180 1RF clopidogrel 75 mg tablet 75 mg PO DAILY Qty: 90 0RF insulin aspart U-100 100 unit/mL solution 1 unit subcut DIRECTED Patient Comments: 1 SLIDING SCALE DOSE SUBCUTANEOUSLY USE DIRECTED insulin glargine [Basaglar KwikPen U-100 Insulin] 100 unit/mL (3 mL) insulin pen 20 unit subcut BID furosemide 40 mg tablet 40 mg PO DAILY PRN (Reason: edema) multivitamin [Daily Multi-Vitamin] Tablet 1 tab PO DAILY tizanidine 4 mg capsule 4 mg PO PRN PRN (Reason: muscle spasticity) cilostazol 50 mg tablet 50 mg PO BID colesevelam 625 mg tablet 1,250 mg PO TID ferrous sulfate 325 mg (65 mg iron) tablet 325 mg PO QDAY gabapentin 600 mg tablet 600 mg PO TID Qty: 270 1RF aspirin [Adult Low Dose Aspirin] 81 mg tablet,delayed release (DR/EC) 81 mg PO QDAY lamotrigine 25 mg tablet 75 mg PO BID topiramate [Topamax] 50 mg tablet 50 mg PO BID lidocaine 5 % adhesive patch,medicated 1 patch topical QDAY Qty: 30 0RF Rx Instructions: leave on most painful area for up to 12 hrs Discontinued potassium chloride 10 mEq tablet extended release 10 meq PO QDAY No Action (DME) Dexcom G7 Sensor Device See Rx Instructions .ROUTE Qty: 1 0RF Rx Instructions: As directed (DME) Dexcom G7 Economic Research Analyst Misc See Rx Instructions .ROUTE Qty: 1 0RF Rx Instructions: As directed Did you review [place] WATCH TECHNICIAN for ALL controlled substances?: Not Applicable Discussed opioids are addictive and Narcan is available by prescription or from pharmacy.: No Condition: Stable Referrals: DEANNE GOLD APRN [NURSE PRACTITIONER, CARDIOLOGY] - 09/13/25 2:40 pm
[2025-09-06 15:15] VITALS: BP 135/64; PULSE 58; TEMP 98.5
[2025-09-07] MEDS ORDERED: ASPIRIN EC PO SCH (07:30)
== END 2025-09-06 15:22 | disposition home or self-care (01) ==
LOC: MEDSURG B 10:03 → ED 10:03 → MEDSURG B 12:50
PROVIDERS: ADMIT Hospitalist; ATTEND Physician Assistant